=== PATIENT | male | born 1980 | race Two or more races ===

== ENCOUNTER 2025-02-26 15:39 | Inpatient (IN) | payer MEDICAID, OTHER ==
[~2025-02-26] VITALS: Ht 152.4 cm; Wt 95.4 kg
[2025-02-26 16:59] VITALS: PULSE 76; RESP 19; O2SAT 97
--- NOTE | 2025-02-26 16:59 | ED.PDOC ---
GI ASSESSMENT HPI Comments 45 y/o M, with no prior medical history presents to the ED for CC of abdominal pain. Patient states, he has been experiencing LLQ abdominal pain with associated symptoms of constipation, chills, and fever x3days. Patient reports, his LBM to have been as yesterday (02/25/25) however, to only have been very little. Patient denies nausea, vomiting, or diarrhea. No other symptoms or modifying factors are present at this time. Chief Complaint: Abdominal Pain Time Seen by MD: 16:50 Reviewed Notes: Nurses Notes, Medications, Allergies Allergies: Coded Allergies: NO KNOWN ALLERGIES (Unverified , 02/26/25) Information Source: Patient Mode of Arrival: Ambulatory Timing: Days Duration: Since onset Prehospital treatment: None Vomitus: None Stool: Impaction Severity: Moderate Recent: None Recent Hx of: None Pain Location: LLQ Modifying Factors: Nothing Associated sign and symptoms: Constipation, Abdominal Pain Past Medical History PAST MEDICAL HISTORY: Denies Surgical History: Denies all surgeries Family History Family History: Unknown Social History Smoker: Non-Smoker Alcohol: Denies ETOH Use Drugs: Denies Drug Use Lives In: Home Constitutional: reports: chills, fever; denies: diaphoresis, fatigue, malaise, sweats, weakness, others EENTM: denies: blurred vision, double vision, ear bleeding, ear discharge, ear drainage, ear pain, ear ringing, eye pain, eye redness, hearing loss, mouth pain, mouth swelling, nasal discharge, nose bleeding, nose congestion, nose pain , photophobia, tearing, throat pain, throat swelling, voice changes, others Respiratory: denies: cough, hemoptysis, orthopnea, SOB at rest, shortness of breath, SOB with excertion, stridor, wheezing, others Cardiovascular: denies: chest pain, dizzy spells, diaphoresis, Dyspnea on exertion, edema, irregular heart beat, left arm pain, lightheadedness, palpitations, PND, syncope, others Gastrointestinal: reports: abdominal pain; denies: abdomen distended, blood streaked bowels, constipated, diarrhea, dysphagia, difficulty swallowing, hematemesis, melena, nausea, poor appetite, poor fluid intake, rectal bleeding, rectal pain, vomiting, others Genitourinary: reports: dysuria; denies: burning, flank pain, frequency, hematuria, incontinence, penile discharge, penile sore, pain, testicle pain, testicle swelling, urgency, others Neurological: denies: dizziness, fainting, headache, left sided numbness, left sided weakness, numbness, paresthesia, pre-existing deficit, right sided numbness, right sided weakness, seizure, speech problems, tingling, tremors, weakness, others Musculoskeletal: denies: back pain, gout, joint pain, joint swelling, muscle pain, muscle stiffness, neck pain, others Integumetry: denies: bruises, change in color, change in hair/nails, dryness, laceration, lesions, lumps, rash, wounds, others Allergic/Immunocompromised: denies: Difficulty Healing, Frequent Infections, Hives, Itching, others Hematologic/Lymphatic: denies: anemia, blood clots, easy bleeding, easy bruising, swollen glands, others Endocrine: denies: excessive hunger, excessive sweating, excessive thirst, excessive urination, flushing, intolerance to cold, intolerance to heat, unexplained weight gain, unexplained weight loss, others Psychiatric: denies: anxiety, bipolar disorder, depression, hopeless, panic disorder, schizophrenia, sleepless, suicidal, others All Other Systems: Reviewed and Negative Physical Exam General Appearance: Moderate Distress HEENT: Normal ENT Inspection, Pharynx Normal, TMs Normal Neck: Full Range of Motion, Non-Tender, Normal, Normal Inspection Respiratory: Chest Non-Tender, Lungs Clear, No Accessory Muscle Use, No Res piratory Distress, Normal Breath Sounds Cardiovascular: No Edema, No JVD, No Murmur, No Gallop, Normal Peripheral Pulses, Regular Rate/Rhythm Breast Exam: Deferred Gastrointestinal: LLQ, No Organomegaly, No Pulsatile Mass, Normal Bowel Sounds, Soft, Tenderness Genitalia: Deferred Pelvic: Deferred Rectal: Deferred Extremities: No calf tenderness, Normal capillary refill, Normal inspection, Normal range of motion, Non-tender, No pedal edema Musculoskeletal : Apperance: Normal Neurologic: Alert, aerial sprayer II-XII nml as Tested, Motor Weakness, Normal Affect, Normal Mood, No Sensory Deficits Cerebellar Function: Normal Reflexes: Normal Skin: Dry, Normal Color, Warm Lymphatic: No Adenopathy Was a procedure done? Was a procedure done?: No GI differential Dx Differential Diagnosis: Constipation, Diverticular disease X-Ray, Labs, Meds, VS Vital Signs Date Time Temp Pulse Resp B/P (MAP) Pulse Ox O2 Delivery O2 Flow Rate FiO2 02/26/25 16:59 99.1 76 19 140/82 (101) 97 99.1 02/26/25 16:59 76 19 97 Room Air* 0 21 02/26/25 16:30 98.1 85 17 137/87 (104) 95 98.1 02/26/25 15:40 98.1 82 18 133/85 98 98.1 Lab Test 02/26/25 17:01 Range/Units White Blood Count 16.9 H 4.4-10.8 10^3/uL Red Blood Count 5.04 4.5-5.90 10^6/uL Hemoglobin 15.5 13.5-17.5 g/dL Hematocrit 45.5 41.0-53.0 % Mean Corpuscular Volume 90.2 80.0-100.0 fL Mean Corpuscular Hemoglobin 30.7 28.0-32.0 pg Mean Corpuscular Hemoglobin Concent 34.0 32.0-36.0 g/dL Red Cell Distribution Width 14.5 H 11.8-14.3 % Platelet Count 233 140-450 10^3/uL Mean Platelet Volume 8.1 6.9-10.8 fL Neutrophils (%) (Auto) 90.4 H 37.0-80.0 % Lymphocytes (%) (Auto) 6.5 L 10.0-50.0 % Monocytes (%) (Auto) 2.8 0.0-12.0 % Eosinophils (%) (Auto) 0.1 0.0-7.0 % Basophils (%) (Auto) 0.2 0.0-2.0 % Neutrophils # (Auto) 15.2 H 1.6-8.6 10 ^3/uL Lymphocytes # (Auto) 1.1 0.4-5.4 10 ^3/uL Monocytes # (Auto) 0.5 0-1.3 10 ^3/uL Eosinophils # (Auto) 0 0-0.8 10 ^3/uL Basophils # (Auto) 0 0-0.2 10 ^3/uL Nucleated Red Blood Cells 0.1 % Sodium Level 138 136-145 mmol/L Potassium Level 4.4 3.5-5.1 mmol/L Chloride Level 101 98-107 mmol/L Carbon Dioxide Level 26 20-31 mmol/L Anion Gap 11 5-15 Blood Urea Nitrogen 12 9-23 mg/dL Creatinine 1.15 0.700-1.30 mg/dL Glomerular Filtration Rate Calc 79 >90 mL/min BUN/Creatinine Ratio 10.4 10.0-20.0 Serum Glucose 112 H 74-106 mg/dL Calcium Level 9.7 8.7-10.4 mg/dL Current Medications Medications (Trade) Dose Ordered Sig/Aldo Route Start Time Stop Time Status Last Admin Sodium Chloride 500 ml @ 500 mls/hr Q1H ONCE IVB 02/26/25 17:00 02/26/25 17:59 02/26/25 17:04 Ketorolac Tromethamine (Toradol Injection) 30 mg ONCE ONCE IV 02/26/25 17:00 02/26/25 17:01 DC 02/26/25 17:03 The CBC shows an elevated white blood cell count of 16.9 The rest of the CBC is within normal limits The chemistry panel is within normal limits The patient was given ketorolac 30 mg IV push The patient was given normal saline at a 500 cc bolus The CAT scan of the abdomen and pelvis shows: IMPRESSION: 1. Acute uncomplicated sigmoid diverticulitis. 2. Hepatic steatosis. The findings are consistent with the acute diverticulitis so the patient is being given Flagyl 500 mg IV piggyback We will continue to follow the patient but the patient will be admitted at this time. Images Reviewed?: Images reviewed and evaluated by me Time of 1ST Reevaluation: 17:20 Reevaluation 1ST: Unchanged Patient Education/Counseling: Diagnosis, Treatment, Prognosis Family Education/Counseling: Diagnosis, Treatment, Prognosis SEPSIS Sepsis Screen Date sepsis recognized/suspect: Feb 26, 2025 Time Sepsis recognized/suspect: 1543 Recent Procedure: No On Antibiotic Therapy: No Respiratory Rate >20: No Heart Rate >90: No Temp<36 C (96.8 F) or >38.3 C: No SBP <90 or MAP <65 mmHG: No New Acute Mental Status Change: No Is the patient on CPAP, BIPAP,: No Physician Orders Urinalysis (02/26/25 16:50) Ct Ab Pel Wo Con-No Oral Or Iv (02/26/25 16:50) Heplock Iv (02/26/25 16:50) Sodium Chloride 0.9% (02/26/25 17:00) Vital Signs Date Time Temp Pulse Resp B/P (MAP) Pulse Ox O2 Delivery O2 Flow Rate FiO2 02/26/25 16:59 99.1 76 19 140/82 (101) 97 99.1 02/26/25 16:59 76 19 97 Room Air* 0 21 02/26/25 16:30 98.1 85 17 137/87 (104) 95 98.1 02/26/25 15:40 98.1 82 18 133/85 98 98.1 Laboratory Tests Test 02/26/25 17:01 White Blood Count 16.9 10^3/uL (4.4-10.8) H Medications Medications Dose Ordered Sig/Aldo Route Start Time Stop Time Status Last Admin Dose Admin Ketorolac Tromethamine 30 mg ONCE ONCE IV 02/26/25 17:00 02/26/25 17:01 DC 02/26/25 17:03 Sodium Chloride 500 ml @ 500 mls/hr Q1H ONCE IVB 02/26/25 17:00 02/26/25 17:59 02/26/25 17:04 Departure 1 Departure Time of Disposition: 17:43 Impression: Primary Impression: Intractable abdominal pain Additional Impression: Acute diverticulitis Disposition: ADMITTED INPATIENT Admit to: Med Surg Condition: Fair Critical Care Note Critical Care Time?: No Stability Stability form required: Yes Unstable for transfer: ED Physician Assesment (Clinical assesment) Heart Score Heart Score: Heart Score Response (Comments) Value History N/A 0 EKG N/A 0 Age N/A 0 Risk Factors N/A 0 Troponin N/A 0 Total 0 I personally scribed for GWEN CHAVIS MD ([email or web address]) on 02/26/25 at 16:59. Electronically submitted by Taylor Abarca ([email or web address]). GWEN CHAVIS MD Feb 26, 2025 16:59
[2025-02-26] MEDS: ONDANSETRON HCL 4 MG/2 ML VIAL IV ONE (17:01)
[2025-02-26] MEDS: KETOROLAC TROMETH 30 MG/ML 1ML VIAL IV ONE (17:03)
[2025-02-26] MEDS: SODIUM CHLORIDE 0.9% 500 ML IVB ONE (17:04)
[2025-02-26 17:28] LABS: Hematocrit 45.5 % (41.0-53.0); Hemoglobin 15.5 g/dL (13.5-17.5); Mean Corpuscular Hemoglobin 30.7 pg (28.0-32.0); Mean Corpuscular Volume 90.2 fL (80.0-100.0); Nucleated Red Blood Cells % 0.1 %
[2025-02-26 17:30] LABS: Chloride 101 mmol/L (98-107); Potassium 4.4 mmol/L (3.5-5.1); Sodium 138 mmol/L (136-145)
[2025-02-26 17:31] LABS: Anion Gap 11 (5-15); Carbon Dioxide 26 mmol/L (20-31)
[2025-02-26 17:32] LABS: Calcium 9.7 mg/dL (8.7-10.4)
[2025-02-26 17:36] LABS: BUN/Creatinine Ratio 10.4 (10.0-20.0); Blood Urea Nitrogen 12 mg/dL (9-23)
[2025-02-26 17:39] LABS: Glucose 112 mg/dL (74-106)
--- NOTE | 2025-02-26 17:39 | DVH ---
EXAM: CT CT AB PEL WO CON-NO ORAL OR IV INDICATION: llq pain TECHNIQUE: Volumetric multidetector CT images of the abdomen and pelvis were obtained without contras t. All CT scans at this facility use dose modulation, iterative reconstruction, and/or weight based d osing when appropriate to reduce radiation dose to as low as reasonably achievable. COMPARISON: None FINDINGS: [LOWER CHEST]: The partially visualized lung bases are clear without a pleural effusion. The cardiac size is normal without pericardial effusion. [LIVER]: Hepatic steatosis [GALLBLADDER AND BILIARY TREE]: No cholelithiasis. [SPLEEN]: Unremarkable. [PANCREAS]: Unremarkable. [ADRENAL GLANDS]: Unremarkable [KIDNEYS]: No hydronephrosis. No nephroureterolithiasis. [BLADDER]: Unremarkable for the degree distention. [REPRODUCTIVE ORGANS]: Unremarkable. [BOWEL/MESENTERY]: Stomach is normal. Inflammatory stranding of the proximal sigmoid colon primarily along the anti mesenteric margin compatible with diverticulitis. No definitive drainable fluid collec tion at this time [ASCITES]: Trace ascites in the left pericolic gutter [LYMPHADENOPATHY]: No pathologically enlarged lymph nodes by CT size criteria [VASCULATURE]: No aneurysmal dilatation. [ABDOMINAL WALL]: Unremarkable. [MUSCULOSKELETAL]: No acute fracture or aggressive focal osseous lesion. IMPRESSION: 1. Acute uncomplicated sigmoid diverticulitis. 2. Hepatic steatosis.
[2025-02-26 18:16] LABS: Urine Protein, UAD Negative (Negative)
[2025-02-26] MEDS ORDERED: ONDANSETRON HCL 4 MG/2 ML VIAL IV PRN (19:45)
[2025-02-26] MEDS ORDERED: HYDROcodone-ACET 5/325MG TAB PO PRN (19:45)
[2025-02-26] MEDS: PANTOPRAZOLE 40 MG/10 ML VIAL INJ IV ONE (21:39)
[2025-02-26 22:09] VITALS: BP 131/83; PULSE 84; RESP 19; TEMP 97.1; O2SAT 96
--- NOTE | 2025-02-26 22:12 | DVHHP2 ---
History of Present Illness Reason for Visit: Abdominal pain History of Present Illness 45-year-old male presents for evaluation of abdominal pain. Patient reports a two day history of left lower quadrant intermittent abdominal pain/cramping with associated nausea and constipation. He also reports intermittent chills. Past Medical History Denies Past Surgical History Denies Family History Noncontributory Smoke: No ALCOHOL: none Drugs: None Lives: with Family Review of Systems Review of Systems Review of systems are currently negative otherwise addressed in HPI. Allergies: Coded Allergies: NO KNOWN ALLERGIES (Unverified , 02/26/25) Medications Current Medications Medications Dose Ordered Sig/Aldo Route Start Time Stop Time Status Last Admin Dose Admin Pantoprazole Sodium 40 mg DAILY IV 02/27/25 10:00 Ceftriaxone Sodium 50 ml @ 100 mls/hr DAILY@09 IV 02/27/25 09:00 Acetaminophen/ Hydrocodone Bitart 1 tab Q4HP PRN PO 02/26/25 19:45 Ondansetron HCl 4 mg Q4HP PRN IV 02/26/25 19:45 Acetaminophen 650 mg Q6HP PRN PO 02/26/25 19:45 Exam Vital Signs Vital Signs Date Time Temp Pulse Resp B/P (MAP) Pulse Ox O2 Delivery O2 Flow Rate FiO2 02/26/25 21:45 98.6 84 17 148/96 (113) 95 98.6 02/26/25 16:59 Room Air* 0 21 Exam Gen: 45-year-old male in mild distress. Skin: Warm, dry, normal color and texture, no rash. HEENT: Normocephalic atraumatic, mucous membranes moist and pink. Neck: Cervical and supraclavicular nodes normal without enlargement, trachea is midline, thyroid gland is normal without masses. Pulmonary: Clear to auscultation and percussion bilaterally. Cardiac: Regular rate and rhythm. No murmur Abdomen: Soft, left lower quadrant tenderness, nondistended, bowel sounds present all 4 quadrants, no guarding, no rigidity, no organomegaly. Extremities: No cyanosis, clubbing, no edema Neuro: Cranial nerves II through XII grossly intact, normal affect and speech, no focal motor deficits. Labs/Xrays ORDERING PHYSICIAN: GWEN CHAVIS MD PROCEDURE(s): ABPL - CT AB PEL WO CON-NO ORAL OR IV REASON: llq pain ORDER NUMBER(s): [id number], ACCESSION NUMBER(s): [id number] EXAM: CT CT AB PEL WO CON-NO ORAL OR IV INDICATION: llq pain TECHNIQUE: Volumetric multidetector CT images of the abdomen and pelvis were obtained without contrast. All CT scans at this facility use dose modulation, iterative reconstruction, and/or weight based dosing when appropriate to reduce radiation dose to as low as reasonably achievable. COMPARISON: None FINDINGS: [LOWER CHEST]: The partially visualized lung bases are clear without a pleural effusion. The cardiac size is normal without pericardial effusion. [LIVER]: Hepatic steatosis [GALLBLADDER AND BILIARY TREE]: No cholelithiasis. [SPLEEN]: Unremarkable. [PANCREAS]: Unremarkable. [ADRENAL GLANDS]: Unremarkable [KIDNEYS]: No hydronephrosis. No nephroureterolithiasis. [BLADDER]: Unremarkable for the degree distention. [REPRODUCTIVE ORGANS]: Unremarkable. [BOWEL/MESENTERY]: Stomach is normal. Inflammatory stranding of the proximal sigmoid colon primarily along the anti mesenteric margin compatible with diverticulitis. No definitive drainable fluid collection at this time [ASCITES]: Trace ascites in the left pericolic gutter [LYMPHADENOPATHY]: No pathologically enlarged lymph nodes by CT size criteria [VASCULATURE]: No aneurysmal dilatation. [ABDOMINAL WALL]: Unremarkable. [MUSCULOSKELETAL]: No acute fracture or aggressive focal osseous lesion. IMPRESSION: 1. Acute uncomplicated sigmoid diverticulitis. 2. Hepatic steatosis. Labs Test 02/26/25 17:01 02/26/25 17:00 Range/Units White Blood Count 16.9 H 4.4-10.8 10^3/uL Red Blood Count 5.04 4.5-5.90 10^6/uL Hemoglobin 15.5 13.5-17.5 g/dL Hematocrit 45.5 41.0-53.0 % Mean Corpuscular Volume 90.2 80.0-100.0 fL Mean Corpuscular Hemoglobin 30.7 28.0-32.0 pg Mean Corpuscular Hemoglobin Concent 34.0 32.0-36.0 g/dL Red Cell Distribution Width 14.5 H 11.8-14.3 % Platelet Count 233 140-450 10^3/uL Mean Platelet Volume 8.1 6.9-10.8 fL Neutrophils (%) (Auto) 90.4 H 37.0-80.0 % Lymphocytes (%) (Auto) 6.5 L 10.0-50.0 % Monocytes (%) (Auto) 2.8 0.0-12.0 % Eosinophils (%) (Auto) 0.1 0.0-7.0 % Basophils (%) (Auto) 0.2 0.0-2.0 % Neutrophils # (Auto) 15.2 H 1.6-8.6 10 ^3/uL Lymphocytes # (Auto) 1.1 0.4-5.4 10 ^3/uL Monocytes # (Auto) 0.5 0-1.3 10 ^3/uL Eosinophils # (Auto) 0 0-0.8 10 ^3/uL Basophils # (Auto) 0 0-0.2 10 ^3/uL Nucleated Red Blood Cells 0.1 % Sodium Level 138 136-145 mmol/L Potassium Level 4.4 3.5-5.1 mmol/L Chloride Level 101 98-107 mmol/L Carbon Dioxide Level 26 20-31 mmol/L Anion Gap 11 5-15 Blood Urea Nitrogen 12 9-23 mg/dL Creatinine 1.15 0.700-1.30 mg/dL Glomerular Filtration Rate Calc 79 >90 mL/min BUN/Creatinine Ratio 10.4 10.0-20.0 Serum Glucose 112 H 74-106 mg/dL Calcium Level 9.7 8.7-10.4 mg/dL Urine Color Colorless Yellow Urine Clarity Clear Clear Urine pH 5.5 5.0-9.0 Urine Specific [place] 1.005 1.001-1.035 Urine Protein Negative Negative Urine Ketones Negative Negative Urine Blood Trace H Negative /uL Urine Nitrite Negative Negative Urine Bilirubin Negative Negative Urine Urobilinogen Normal Negative mg/dL Urine Leukocyte Esterase Negative Negative /uL Urine RBC <1 0 - 3 /hpf Urine Microscopic WBC < 1 0-3 /HPF Urine Squamous Epithelial Cells None seen <5 /hpf Urine Bacteria None seen None Seen /hpf Urine Glucose Normal Normal mg/dL SEPSIS Sepsis Screen Date sepsis recognized/suspect: Feb 26, 2025 Time Sepsis recognized/suspect: 1658 Recent Procedure: No On Antibiotic Therapy: No Respiratory Rate >20: No Heart Rate >90: No Temp<36 C (96.8 F) or >38.3 C: No SBP <90 or MAP <65 mmHG: No New Acute Mental Status Change: No Is the patient on CPAP, BIPAP,: No Physician Orders Ct Ab Pel Wo Con-No Oral Or Iv (02/26/25 16:50) Heplock Iv (02/26/25 16:50) Pantoprazole (Protonix) (02/27/25 10:00) * [facility] Director Maternal Child (02/26/25 19:42) Basic Metabolic Panel (02/27/25 04:00) Ceftriaxone 1gm/50ml (Rocephin) (02/27/25 09:00) Admit (02/26/25 19:42) Hydrocodone-Acet 5/325mg Tab ([place] 5/32 (02/26/25 19:45) Ondansetron Hcl (Zofran) (02/26/25 19:45) Complete Blood Count (02/27/25 04:00) Condition: Stable (02/26/25 19:42) Acetaminophen Tablet (Tylenol Tablet) (02/26/25 19:45) Clear Liq Diet (02/27/25 Breakfast) Bedrest With Bathroom Privileg (02/26/25 19:42) Vital Signs Date Time Temp Pulse Resp B/P (MAP) Pulse Ox O2 Delivery O2 Flow Rate FiO2 02/26/25 21:45 98.6 84 17 148/96 (113) 95 98.6 02/26/25 21:45 98.6 84 17 148/96 (113) 95 98.6 02/26/25 16:59 99.1 76 19 140/82 (101) 97 99.1 02/26/25 16:59 76 19 97 Room Air* 0 21 02/26/25 16:30 98.1 85 17 137/87 (104) 95 98.1 02/26/25 15:40 98.1 82 18 133/85 98 98.1 Laboratory Tests Test 02/26/25 17:01 White Blood Count 16.9 10^3/uL (4.4-10.8) H Medications Medications Dose Ordered Sig/Aldo Route Start Time Stop Time Status Last Admin Dose Admin Ketorolac Tromethamine 30 mg ONCE ONCE IV 02/26/25 17:00 02/26/25 17:01 DC 02/26/25 17:03 30 MG Metronidazole 100 ml @ 100 mls/hr ONCE ONCE IV 02/26/25 17:45 02/26/25 18:44 DC 02/26/25 17:54 100 MLS/HR Pantoprazole Sodium 40 mg ONCE ONCE IV 02/26/25 19:45 02/26/25 19:53 DC 02/26/25 21:39 40 MG Sodium Chloride 500 ml @ 500 mls/hr Q1H ONCE IVB 02/26/25 17:00 02/26/25 17:59 DC 02/26/25 17:04 500 MLS/HR Assessment/Plan Assessment/Plan Assessment Acute diverticulitis Leukocytosis Plan Admit the patient to [facility] to the hospitalist GI consult Clear liquid diet Pain management Rocephin/Flagyl Continue treatment per orders Plan discussed with: Patient My Orders Orders - LUIS EDUARDO GARCIA Procedure Category Date Status Time Pantoprazole PHA 02/27/25 In Process (Protonix) 10:00 * [facility] Director Maternal Child CONS 02/26/25 Transmitted 19:42 Basic Metabolic Panel LAB 02/27/25 Verified 04:00 Ceftriaxone 1gm/50ml PHA 02/27/25 In Process (Rocephin) 09:00 Admit ADMIT 02/26/25 Transmitted 19:42 Hydrocodone-Acet PHA 02/26/25 In Process 5/325mg Tab ([place] 19:45 Ondansetron Hcl PHA 02/26/25 In Process (Zofran) 19:45 Complete Blood Count LAB 02/27/25 Verified 04:00 Condition: Stable [place] 02/26/25 In Process 19:42 Acetaminophen Tablet PHA 02/26/25 In Process (Tylenol Tablet) 19:45 Clear Liq Diet DIET 02/27/25 Transmitted Breakfast Bedrest With Bathroom [place] 02/26/25 In Process Privileg 19:42 Date of Service: Feb 26, 2025 Billing Provider: LUIS EDUARDO GARCIA Common Visit Codes: [id number] INP/OBS CARE (HIGH) LUIS EDUARDO GARCIA Feb 26, 2025 22:12
[2025-02-26 22:31] VITALS: PULSE 64; RESP 19; O2SAT 96
[2025-02-26] MEDS: ACETAMINOPHEN 325 MG TAB PO PRN (22:52)
[2025-02-26 23:27] VITALS: BP 131/83; PULSE 64; RESP 19; TEMP 97.1; O2SAT 96
[2025-02-27] VITALS (7 sets, daily range): BP systolic 133–147; BP diastolic 80–86; PULSE 64–83; RESP 15–19; TEMP 97.9–98.2; O2SAT 97–98
[2025-02-27 06:48] LABS: Hematocrit 42.2 % (41.0-53.0); Hemoglobin 14.6 g/dL (13.5-17.5); Mean Corpuscular Hemoglobin 30.9 pg (28.0-32.0); Mean Corpuscular Volume 88.9 fL (80.0-100.0); Nucleated Red Blood Cells % 0.0 %
[2025-02-27 06:54] LABS: Chloride 103 mmol/L (98-107); Potassium 3.9 mmol/L (3.5-5.1); Sodium 140 mmol/L (136-145)
[2025-02-27 06:55] LABS: Anion Gap 10 (5-15); Calcium 9.7 mg/dL (8.7-10.4); Carbon Dioxide 27 mmol/L (20-31)
[2025-02-27 07:00] LABS: BUN/Creatinine Ratio 13.5 (10.0-20.0); Blood Urea Nitrogen 14 mg/dL (9-23)
[2025-02-27 07:02] LABS: Glucose 133 mg/dL (74-106)
[2025-02-27] MEDS ORDERED: PANTOPRAZOLE 40 MG/10 ML VIAL INJ IV SCH (10:00)
[2025-02-27] MEDS: PANTOPRAZOLE 40 MG TAB PO ONE (10:04)
--- NOTE | 2025-02-27 14:41 | DVHPNRES ---
Progress Note Date Seen: Feb 27, 2025 Resident Creating Document: CYNDEE BOWMAN RESIDENT Medical Necessity Reason Pt with a Central, PICC or Fol: No Subjective Review of Systems Patient is a Portuguese-speaking 45-year-old male with no past medical history presented to [facility] ED with complaint of abdominal pain. He reports a two to three day history of intermittent cramping pain localized to the left lower quadrant. He notes that the pain worsens with walking or standing. He describes associated symptoms including constipation, chills, and subjective fever. He states that he had a minimal bowel movement yesterday and a small one this morning. He denies vomiting, or diarrhea. CT abdomen shows acute uncomplicated sigmoid diverticulitis and hepatic steatosis. Past medial history: None Past surgical history: None Social & Personal history: None Allergies: None Patient seen and examined at bedside. Patient is alert and oriented to time, place person and responding to all questions. Constitutional: Yes: Fever, Chills Eyes: No Pain, No Vision change, No Conjunctivae inflammation, No Eyelid inflammation, No Other, No Redness ENT: No Ear pain, No Ear discharge, No Nose pain, No Nose discharge, No Nose congestion, No Mouth pain, No Mouth swelling, No Throat pain, No Throat swelling, No Other Cardiovascular: No Chest Pain, No Palpitations, No Orthopnea, No Paroxysmal No Dyspnea, No Edema, No Lt Headedness, No Other Respiratory: No Cough, No Dry, No Shortness of breath, No SOB with exertion, No Wheezing, No Hemoptysis, No Pleuritic Pain, No Sputum, No Other Gastrointestinal: Nausea, No Vomiting, Abdominal Pain, No Diarrhea, C onstipation, No Melena, No Hematochezia, No Other Genitourinary: Dysuria, No Frequency, No Incontinence, No Hematuria, No Retention, No Other Musculoskeletal: No other, No neck pain, No shoulder pain, No arm pain, No back pain, No hand pain, No leg pain, No foot pain Skin: No Rash, No Lesions, No Jaundice, No Bruising, No Other Objective vital signs Vital Sign Date Time Temp Pulse Resp B/P (MAP) Pulse Ox O2 Delivery O2 Flow Rate FiO2 02/27/25 13:00 98.1 77 16 133/86 (102) 97 98.1 02/27/25 08:00 Room Air* 0 21 Total Intake and Output 02/26/25 02/26/25 02/27/25 15:00 23:00 07:00 Intake Total 600 ml 300 ml Balance 600 ml 300 ml medications Current Medications Medications Dose Ordered Sig/Aldo Route Start Time Stop Time Status Last Admin Dose Admin Ceftriaxone Sodium 50 ml @ 100 mls/hr DAILY@09 IV 02/27/25 09:00 02/27/25 10:04 100 MLS/HR Acetaminophen/ Hydrocodone Bitart 1 tab Q4HP PRN PO 02/26/25 19:45 Ondansetron HCl 4 mg Q4HP PRN IV 02/26/25 19:45 Acetaminophen 650 mg Q6HP PRN PO 02/26/25 19:45 02/27/25 06:20 650 MG Metronidazole 100 ml @ 100 mls/hr Q8HR IV 02/27/25 14:00 Pantoprazole Sodium 40 mg DAILY@0600 PO 02/28/25 06:00 Examination General Appearance: Cooperative. Well developed. Well nourished. NAD Head Exam: Normal inspection Neck Exam: Normal inspection. Non-tender. Normal alignment Pulmonary/Respiratory: Chest non-tender. Clear bilateral breath sounds, no crackles, no wheezing. Cardiovascular/Chest: Regular rate and rhythm. No murmurs. No JVD. Peripheral Pulses: 2+ Radial (R). 2+ Radial (L). 2+ Pedal (R). 2+ Pedal (L) Abdominal Exam: LLQ, No Organomegaly, No Pulsatile Mass, Normal Bowel Sounds, Soft, Tenderness Ankle Exam: Negative ankle edema Lower extremities: Negative lower extremity edema Neuro/Mental Status: A&O x4. Coherent. Thoughts/Psych: Normal thought pattern. Appropriate mood and affect. Good judgement and insight Skin Exam: Normal inspection. Normal color. Warm. Dry laboratory and microbiology Laboratory Tests 02/27/25 06:10 Test 02/27/25 06:10 Range/Units Serum Glucose 133 H 74-106 mg/dL Labs and/or images reviewed: Labs reviewed by me, Image(s) reviewed by me Problem List/Assessment/Plan Problem List/Assessment/Plan # Acute uncomplicated sigmoid diverticulitis # Acute intractable abdominal pain due to above CT abdomen: Acute uncomplicated sigmoid diverticulitis. Hepatic steatosis. GI consult Ceftriaxone Metronidazole [place] Zofran Tylenol Diet: Full liquid PUD prophylaxis: protonix 40mg Goals of care: Full code, discussed for >16 minutes on 02/27/25 Plan discussed with patient Plan discussed with Dr. Flores Plan discussed with: Patient, Other (RN) My Orders My Orders Orders - CYNDEE BOWMAN Procedure Category Date Status Time Full Liq Diet DIET 02/27/25 Transmitted Lunch Date of Service: Feb 27, 2025 Billing Provider: YOBANI FLORES MD Common Visit Codes: [id number] INP/OBS CARE(HIGH) CYNDEE BOWMAN Feb 27, 2025 14:41 YOBANI FLORES MD Feb 27, 2025 23:07
[2025-02-27] MEDS ORDERED: CIPR-173 PO (14:52)
[2025-02-27] MEDS ORDERED: POLY33505 PO (14:52)
[2025-02-27] MEDS ORDERED: METR-344 PO (14:52)
[2025-02-28 01:00] VITALS: BP 127/78; PULSE 74; RESP 18; TEMP 98.5; O2SAT 96
[2025-02-28 05:00] VITALS: BP 114/73; PULSE 62; RESP 18; TEMP 98.2; O2SAT 95
[2025-02-28] MEDS: PANTOPRAZOLE 40 MG TAB PO SCH (05:35)
[2025-02-28 05:47] LABS: Hematocrit 41.0 % (41.0-53.0); Hemoglobin 14.3 g/dL (13.5-17.5); Mean Corpuscular Hemoglobin 30.9 pg (28.0-32.0); Mean Corpuscular Volume 88.5 fL (80.0-100.0); Nucleated Red Blood Cells % 0.1 %
[2025-02-28 05:59] LABS: Alanine Aminotransferase 29 U/L (7-40); Albumin 4.0 g/dL (3.2-4.8); Alkaline Phosphatase 66 U/L (46-116); Anion Gap 10 (5-15); BUN/Creatinine Ratio 10.9 (10.0-20.0); Blood Urea Nitrogen 13 mg/dL (9-23); Calcium 9.0 mg/dL (8.7-10.4); Carbon Dioxide 26 mmol/L (20-31); Chloride 105 mmol/L (98-107); Glucose 95 mg/dL (74-106); Potassium 3.9 mmol/L (3.5-5.1); Sodium 141 mmol/L (136-145); Total Protein 6.7 g/dL (5.7-8.2)
[2025-02-28 06:09] LABS: Bilirubin, Total 0.5 mg/dL (0.2-1.0)
[2025-02-28 09:00] VITALS: BP 121/74; PULSE 62; RESP 17; TEMP 98.3; O2SAT 95
[2025-02-28 10:54] VITALS: BP 131/95; PULSE 67; RESP 20; TEMP 97.5; O2SAT 100
--- NOTE | 2025-02-28 11:39 | DVHDSRES ---
Discharge Summary Date of Admission Resident Creating Document: CYNDEE BOWMAN RESIDENT Feb 26, 2025 at 19:42 Date of Discharge: Feb 28, 2025 Admitting Diagnosis abdominal pain Labs/Diagnostic Data: Laboratory Results Test 02/28/25 05:10 02/26/25 17:00 White Blood Count 10.2 10^3/uL (4.4-10.8) Red Blood Count 4.63 10^6/uL (4.5-5.90) Hemoglobin 14.3 g/dL (13.5-17.5) Hematocrit 41.0 % (41.0-53.0) Mean Corpuscular Volume 88.5 fL (80.0-100.0) Mean Corpuscular Hemoglobin 30.9 pg (28.0-32.0) Mean Corpuscular Hemoglobin Concent 34.8 g/dL (32.0-36.0) Red Cell Distribution Width 14.1 % (11.8-14.3) Platelet Count 258 10^3/uL (140-450) Mean Platelet Volume 8.2 fL (6.9-10.8) Neutrophils (%) (Auto) 65.6 % (37.0-80.0) Lymphocytes (%) (Auto) 26.6 % (10.0-50.0) Monocytes (%) (Auto) 6.8 % (0.0-12.0) Eosinophils (%) (Auto) 0.6 % (0.0-7.0) Basophils (%) (Auto) 0.4 % (0.0-2.0) Neutrophils # (Auto) 6.7 10 ^3/uL (1.6-8.6) Lymphocytes # (Auto) 2.7 10 ^3/uL (0.4-5.4) Monocytes # (Auto) 0.7 10 ^3/uL (0-1.3) Eosinophils # (Auto) 0.1 10 ^3/uL (0-0.8) Basophils # (Auto) 0 10 ^3/uL (0-0.2) Nucleated Red Blood Cells 0.1 % Sodium Level 141 mmol/L (136-145) Potassium Level 3.9 mmol/L (3.5-5.1) Chloride Level 105 mmol/L (98-107) Carbon Dioxide Level 26 mmol/L (20-31) Anion Gap 10 (5-15) Blood Urea Nitrogen 13 mg/dL (9-23) Creatinine 1.19 mg/dL (0.700-1.30) Glomerular Filtration Rate Calc 76 mL/min (>90) BUN/Creatinine Ratio 10.9 (10.0-20.0) Serum Glucose 95 mg/dL (74-106) Calcium Level 9.0 mg/dL (8.7-10.4) Total Bilirubin 0.5 mg/dL (0.2-1.0) Aspartate Amino Transferase (AST) 20 U/L (13-40) Alanine Aminotransferase (ALT) 29 U/L (7-40) Alkaline Phosphatase 66 U/L (46-116) Total Protein 6.7 g/dL (5.7-8.2) Albumin 4.0 g/dL (3.2-4.8) Urine Color Colorless (Yellow) Urine Clarity Clear (Clear) Urine pH 5.5 (5.0-9.0) Urine Specific [place] 1.005 (1.001-1.035) Urine Protein Negative (Negative) Urine Ketones Negative (Negative) Urine Blood Trace /uL (Negative) Urine Nitrite Negative (Negative) Urine Bilirubin Negative (Negative) Urine Urobilinogen Normal mg/dL (Negative) Urine Leukocyte Esterase Negative /uL (Negative) Urine RBC <1 /hpf (0 - 3) Urine Microscopic WBC < 1 /HPF (0-3) Urine Squamous Epithelial Cells None seen /hpf (<5) Urine Bacteria None seen /hpf (None Seen) Urine Glucose Normal mg/dL (Normal) Other Laboratory Tests 02/28/25 05:10 Brief Hx & Hospital Course: The patient is a 45-year-old Barbadian-speaking male with no known past medical or surgical history who presented to [facility] ED with complaints of abdominal pain. He reported a 23 day history of intermittent cramping pain localized to the left lower quadrant, worsened by walking or standing. Associated symptoms included constipation, chills, and subjective fever. He denied vomiting or diarrhea. Physical examination revealed LLQ tenderness without peritoneal signs. CT abdomen demonstrated acute uncomplicated sigmoid diverticulitis and hepatic steatosis. The patient was admitted for medical management of diverticulitis. He was started on intravenous antibiotics (ceftriaxone and metronidazole), pain control with [place] and Tylenol, and antiemetics. A GI consultation was obtained. He was transitioned to oral antibiotics (ciprofloxacin and metronidazole) and placed on a full liquid diet. Miralax was prescribed for constipation. The patient remained hemodynamically stable and alert, with improvement in symptoms during hospitalization. Examination General Appearance: Cooperative. Well developed. Well nourished. NAD Head Exam: Normal inspection Neck Exam: Normal inspection. Non-tender. Normal alignment Pulmonary/Respiratory: Chest non-tender. Clear bilateral breath sounds, no crackles, no wheezing. Cardiovascular/Chest: Regular rate and rhythm. No murmurs. No JVD. Peripheral Pulses: 2+ Radial (R). 2+ Radial (L). 2+ Pedal (R). 2+ Pedal (L) Abdominal Exam: LLQ, No Organomegaly, No Pulsatile Mass, Normal Bowel Sounds, Soft, Tenderness Ankle Exam: Negative ankle edema Lower extremities: Negative lower extremity edema Neuro/Mental Status: A&O x4. Coherent. Thoughts/Psych: Normal thought pattern. Appropriate mood and affect. Good judgement and insight Skin Exam: Normal inspection. Normal color. Warm. Dry Operations or Procedures PATIENT: ROCIO WHITE ACCT: [id number] UNIT: [id number] : 1980 LOC: ER ROOM / BED: / AGE / SEX: 45 / M ADM STATUS: REG ER SERVICE 1650 ORDERING PHYSICIAN: GWEN CHAVIS MD PROCEDURE(s): ABPL - CT AB PEL WO CON-NO ORAL OR IV REASON: llq pain ORDER NUMBER(s): [id number], ACCESSION NUMBER(s): [id number] EXAM: CT CT AB PEL WO CON-NO ORAL OR IV INDICATION: llq pain TECHNIQUE: Volumetric multidetector CT images of the abdomen and pelvis were obtained without contrast. All CT scans at this facility use dose modulation, iterative reconstruction, and/or weight based dosing when appropriate to reduce radiation dose to as low as reasonably achievable. COMPARISON: None FINDINGS: [LOWER CHEST]: The partially visualized lung bases are clear without a pleural effusion. The cardiac size is normal without pericardial effusion. [LIVER]: Hepatic steatosis [GALLBLADDER AND BILIARY TREE]: No cholelithiasis. [SPLEEN]: Unremarkable. [PANCREAS]: Unremarkable. [ADRENAL GLANDS]: Unremarkable [KIDNEYS]: No hydronephrosis. No nephroureterolithiasis. [BLADDER]: Unremarkable for the degree distention. [REPRODUCTIVE ORGANS]: Unremarkable. [BOWEL/MESENTERY]: Stomach is normal. Inflammatory stranding of the proximal sigmoid colon primarily along the anti mesenteric margin compatible with diverticulitis. No definitive drainable fluid collection at this time [ASCITES]: Trace ascites in the left pericolic gutter [LYMPHADENOPATHY]: No pathologically enlarged lymph nodes by CT size criteria [VASCULATURE]: No aneurysmal dilatation. [ABDOMINAL WALL]: Unremarkable. [MUSCULOSKELETAL]: No acute fracture or aggressive focal osseous lesion. IMPRESSION: 1. Acute uncomplicated sigmoid diverticulitis. 2. Hepatic steatosis. Condition at Discharge: Stable Final Diagnosis/Problems List # Acute uncomplicated sigmoid diverticulitis # Acute intractable abdominal pain due to above Discharge Disposition: Home Discharge Instruct/Medications Diet: See Comment Diet comment: Full liquid diet for 5-7 days Activity: No Restrictions, As Tolerated Follow Up/Referral: Follow up with PCP within 1 week Medications: New Prescriptions Ciprofloxacin Hcl (Cipro) 500 Mg PO BID 10 Days #20 TAB Ref 0 Metronidazole (Flagyl) 500 Mg PO TID 10 Days #30 TAB Ref 0 Miralax 17 Gm PO DAILY PRN 10 Days #10 POW Ref 0 continue home medications Scheduled Ciprofloxacin Hcl (Cipro), 500 MG PO BID Metronidazole (Flagyl), 500 MG PO TID Scheduled PRN Polyethylene Glycol (Miralax), 17 GM PO DAILYP PRN Discharge Statement: "Patient was advised to return to the ER or call 911 if any headaches, dizziness, shortness of breath, chest pain, abdominal pain, bleeding, fevers, or worsening of medical condition. Patient was counseled about treatment plan, medications, possible side effects, patientverbalized understanding. All questions were answered to the best of my ability. This discharge took greater then 30 minutes in planning, reviewing documentation, counseling the patient, and discussing with other team members." ASSESSMENT ASSESSMENT Assessment # Acute uncomplicated sigmoid diverticulitis # Acute intractable abdominal pain due to above Date of Service: Feb 28, 2025 Billing Provider: YOBANI GODFREY MD Common Visit Codes: 20178-NFJ/OBS DISCH DAY >30min CYNDEE BOWMAN RESIDENT Feb 28, 2025 11:38 YOBANI GODFREY MD Mar 01, 2025 07:05
== END 2025-02-28 13:17 | disposition home or self-care (01) | DRG 244 ==
LOC: ER 15:39 → OVERFLOW 19:42 → WEST WING 19:49
PROVIDERS: ADMIT Internal Medicine; ATTEND Internal Medicine
DX: K57.32 Diverticulitis of large intestine without perforation or abscess without bleeding (principal); D72.829 Elevated white blood cell count, unspecified; K59.00 Constipation, unspecified; K76.0 Fatty (change of) liver, not elsewhere classified; Z79.899 Other long term (current) drug therapy
CPT/HCPCS: 36415; 74176; 80048; 80053; 81001; 85025; 96365; 96375; G0378; J1885; J2470; J3490

== ENCOUNTER 2025-03-04 14:55 | Inpatient (IN) | payer MEDICAID ==
[~2025-03-04] VITALS: Ht 175.3 cm; Wt 60.0 kg
[~2025-03-04 14:55] MED LIST: CIPR-173 PO; METR-344 PO; POLY33505 PO
[2025-03-04 15:56] LABS: Hematocrit 46.4 % (41.0-53.0); Hemoglobin 16.1 g/dL (13.5-17.5); Mean Corpuscular Hemoglobin 30.8 pg (28.0-32.0); Mean Corpuscular Volume 88.9 fL (80.0-100.0); Nucleated Red Blood Cells % 0.2 %
--- NOTE | 2025-03-04 15:59 | ED.PDOC ---
History of Present Illness HPI Comments 45 y/o obese M presents with c/c of fever, cough, and congestion for 2x days. Patient reports on persisting symptoms following initial onset, with a last at- home temperature of 101.3F prior to ED arrival. Denies any shortness of breath, chest pain, nausea, vomiting, chills, or further associated symptoms. Only reported Hx of diverticulitis. Chief Complaint: Fever Time Seen by MD: 15:20 Reviewed Notes: Nurses Notes, Medications, Allergies Allergies: Coded Allergies: NO KNOWN ALLERGIES (Unverified , 02/26/25) Home Meds Active Scripts Polyethylene Glycol (Miralax) 17 Gm/Scoop Pow, 17 GM PO DAILYP PRN for 10 Days, #10 POW 0 Refills Prov:CHRISTINE SIN 02/27/25 Metronidazole (Flagyl) 500 Mg Tab, 500 MG PO TID for 10 Days, #30 TAB 0 Refills Prov:CHRISTINE SIN 02/27/25 Ciprofloxacin Hcl (Cipro) 500 Mg Tab, 500 MG PO BID for 10 Days, #20 TAB 0 Refills Prov:CHRISTINE SIN 02/27/25 Information Source: Patient Mode of Arrival: Ambulatory Severity: Moderate Timing: Days Duration: Since onset Prehospital treatment: None Past Medical History Past Medical History (Other): diverticulitis Surgical History: Denies all surgeries Family History Family History: Unknown Social History Smoker: Non-Smoker Alcohol: Denies ETOH Use Drugs: Denies Drug Use Lives In: Home All Other Systems: Reviewed and Negative (Comprehensive review of systems are negative unless stated in HPI) Physical Exam General Appearance: Moderate Distress HEENT: Normal ENT Inspection, Pharynx Normal, TMs Normal Neck: Full Range of Motion, Non-Tender, Normal, Normal Inspection Respiratory: Chest Non-Tender, Lungs Clear, No Accessory Muscle Use, No Respiratory Distress, Normal Breath Sounds Cardiovascular: No Edema, No JVD, No Murmur, No Gallop, Normal Peripheral Pulses, Regular Rate/Rhythm Breast Exam: Deferred Gastrointestinal: No Organomegaly, Non Tender, No Pulsatile Mass, Normal Bowel Sounds, Soft Genitalia: Deferred Pelvic: Deferred Rectal: Deferred Extremities: No calf tenderness, Normal capillary refill, Normal inspection, Normal range of motion, Non-tender, No pedal edema Musculoskeletal : Apperance: Normal Neurologic: Alert, paper plate machine tender II-XII nml as Tested, No Motor Deficits, Normal Affect, Normal Mood, No Sensory Deficits Cerebellar Function: Normal Reflexes: Normal Skin: Dry, Normal Color, Warm Peripheral Pulses: 3+ Radial (R), 3+ Radial (L) Lymphatic: No Adenopathy Was a procedure done? Was a procedure done?: No Differential Dx Considerations may include: URI, PNA, viral syndrome, among others X-Ray, Labs, Meds, VS Vital Signs Date Time Temp Pulse Resp B/P (MAP) Pulse Ox O2 Delivery O2 Flow Rate FiO2 03/04/25 15:01 101.8 72 18 144/102 97 101.8 Lab Test 03/04/25 15:43 Range/Units White Blood Count 5.9 # 4.4-10.8 10^3/uL Red Blood Count 5.22 4.5-5.90 10^6/uL Hemoglobin 16.1 13.5-17.5 g/dL Hematocrit 46.4 # 41.0-53.0 % Mean Corpuscular Volume 88.9 80.0-100.0 fL Mean Corpuscular Hemoglobin 30.8 28.0-32.0 pg Mean Corpuscular Hemoglobin Concent 34.7 32.0-36.0 g/dL Red Cell Distribution Width 13.8 11.8-14.3 % Platelet Count 289 140-450 10^3/uL Mean Platelet Volume 7.6 6.9-10.8 fL Neutrophils (%) (Auto) 76.5 37.0-80.0 % Lymphocytes (%) (Auto) 12.8 10.0-50.0 % Monocytes (%) (Auto) 10.3 0.0-12.0 % Eosinophils (%) (Auto) 0.1 0.0-7.0 % Basophils (%) (Auto) 0.3 0.0-2.0 % Neutrophils # (Auto) 4.5 1.6-8.6 10 ^3/uL Lymphocytes # (Auto) 0.7 0.4-5.4 10 ^3/uL Monocytes # (Auto) 0.6 0-1.3 10 ^3/uL Eosinophils # (Auto) 0 0-0.8 10 ^3/uL Basophils # (Auto) 0 0-0.2 10 ^3/uL Nucleated Red Blood Cells 0.2 % Sodium Level Pending Potassium Level Pending Chloride Level Pending Carbon Dioxide Level Pending Anion Gap Pending Blood Urea Nitrogen Pending Creatinine Pending Glomerular Filtration Rate Calc Pending BUN/Creatinine Ratio Pending Serum Glucose Pending Calcium Level Pending Patient alert. Came in because of fever cough congestion. Hemoglobin within normal limits. Blood pressure elevated. He does have fever. Possible pneumonia. Establish intravenous access. Was given fluids. Was given Rocephin. Was given azithromycin. Explained to the patient. Continue to monitor. Time of 1ST Reevaluation: 15:50 Reevaluation 1ST: Unchanged Patient Education/Counseling: Diagnosis, Treatment, Need For Follow Up Family Education/Counseling: No Family Present SEPSIS Sepsis Screen Date sepsis recognized/suspect: Mar 04, 2025 Time Sepsis recognized/suspect: 1503 Recent Procedure: No On Antibiotic Therapy: No Respiratory Rate >20: No Heart Rate >90: No Temp<36 C (96.8 F) or >38.3 C: Yes SBP <90 or MAP <65 mmHG: No New Acute Mental Status Change: No Is the patient on CPAP, BIPAP,: No Physician Orders Chest Portable (03/04/25 15:28) Basic Metabolic Panel (03/04/25 15:28) Vital Signs Date Time Temp Pulse Resp B/P (MAP) Pulse Ox O2 Delivery O2 Flow Rate FiO2 03/04/25 15:01 101.8 72 18 144/102 97 101.8 Laboratory Tests Test 03/04/25 15:43 White Blood Count 5.9 10^3/uL (4.4-10.8) # Departure 1 Departure Time of Disposition: 16:05 Impression: Primary Impression: Pneumonia Qualified Codes: J18.9 - Pneumonia, unspecified organism Additional Impression: Hypertensive urgency Disposition: ADMITTED INPATIENT Admit to: Med Surg Condition: Guarded Critical Care Note Critical Care Time?: No Stability Stability form required: No Heart Score Heart Score: Heart Score Response (Comments) Value History N/A 0 EKG N/A 0 Age N/A 0 Risk Factors N/A 0 Troponin N/A 0 Total 0 I personally scribed for SYDNEE PRIETO MD ([email or web address]) on 03/04/25 at 15:59. Electronically submitted by Bo Goetz [email or web address]). SYDNEE PRIETO MD Mar 04, 2025 15:59
[2025-03-04 16:00] LABS: Chloride 98 mmol/L (98-107); Potassium 3.9 mmol/L (3.5-5.1)
[2025-03-04 16:01] LABS: Anion Gap 9 (5-15); Carbon Dioxide 28 mmol/L (20-31)
[2025-03-04 16:02] LABS: Calcium 9.0 mg/dL (8.7-10.4)
[2025-03-04 16:07] LABS: BUN/Creatinine Ratio 7.2 (10.0-20.0); Glucose 104 mg/dL (74-106)
--- NOTE | 2025-03-04 16:07 | DVH ---
CHEST RADIOGRAPH Indication: sob Technique: Single frontal view of the chest was obtained Comparison: None FINDINGS: Lines and Tubes: None Lungs: No focal consolidation. Pleura: No effusion. No pneumothorax. Cardiomediastinal contours: Unremarkable Bones: No acute osseous abnormality. IMPRESSION: 1. No acute cardiopulmonary disease.
[2025-03-04 16:23] LABS: Blood Urea Nitrogen 9 mg/dL (9-23); Sodium 135 mmol/L (136-145)
[2025-03-04 17:45] VITALS: PULSE 73; RESP 18; O2SAT 99
[2025-03-04] MEDS: ACETAMINOPHEN 325 MG TAB PO ONE (19:16)
[2025-03-04] MEDS ORDERED: ONDANSETRON HCL 4 MG/2 ML VIAL IV PRN (20:15)
[2025-03-04] MEDS ORDERED: MORPHINE SULFATE INJ 2 MG/ml SYRG IV PRN (20:15)
[2025-03-04 20:45] LABS: Magnesium 2.1 mg/dL (1.6-2.6); Triglycerides 93.0 mg/dL (< 150)
[2025-03-04 20:47] LABS: Cholesterol 145.0 mg/dL (< 200); HDL Cholesterol 36.0 mg/dL (40-59)
[2025-03-04 21:02] LABS: Lipase 39.0 U/L (12-53)
--- NOTE | 2025-03-04 21:03 | DVHHPRES ---
History of Present Illness Resident Creating Document: TIFFANY HAWK History of Present Illness Damon Mathis is a 45 year old male patient who presents to the ED with chief complaint of fever, productive cough (yellow/greenish sputum) epigastrium nausea while coughing, chills and dyspnea associated with infrequent nausea and nonbloody diarrhea with yellow feces. Patient was recently admitted in the hospital with diagnosis of diverticulitis (one week ago), he is currently completing antibiotic course with ciprofloxacin and metronidazole. Has no other associated symptom. Sign Past medical history: Dyslipidemia, diverticulitis diagnosed one week ago, GERD Surgical history: Denies Family history: Noncontributory Social history lives in [place] with family (next of kin is ). Denies current tobacco, alcohol and other drug abuse Allergies: Denies Home medication: Ciprofloxacin and metronidazole Patient seen and examined at bedside. Currently has no new complaints. Patient will be admitted for further evaluation. Past Medical History Per HPI Past Surgical History Per HPI Family History Per HPI Past Social History Per HPI Review of Systems Review of Systems Per HPI Allergies: Coded Allergies: NO KNOWN ALLERGIES (Unverified , 02/26/25) Medications Current Medications Medications Dose Ordered Sig/Aldo Route Start Time Stop Time Status Last Admin Dose Admin Acetaminophen 325 mg Q4HP PRN PO 03/04/25 20:15 Ondansetron HCl 4 mg Q4HP PRN IV 03/04/25 20:15 Morphine Sulfate 2 mg Q4HPRN PRN IV 03/04/25 20:15 Enoxaparin Sodium 40 mg DAILY SC 03/05/25 10:00 Sodium Chloride 1,000 ml @ 100 mls/hr Q10H IV 03/04/25 20:15 Exam Vital Signs Vital Signs Date Time Temp Pulse Resp B/P (MAP) Pulse Ox O2 Delivery O2 Flow Rate FiO2 03/04/25 19:16 101.2 03/04/25 17:48 99 Room Air* 0 21 03/04/25 17:45 73 18 03/04/25 17:43 146/93 (110) Exam Patient lying in bed, in no acute distress General: Lucid, afebrile, mucosae are moist Cardiovascular: Normal S1 and S2. No murmurs, gallops or rubs Respiratory: Normal ventilation mechanics. Clear lung sounds on auscultation Abdomen: Soft, nontender, no organomegaly, normal bowel sounds MSK/skin: Mobilizes 4 limbs. Skin is dry and warm Neurological: Oriented in 3 spheres. No motor no sensitive deficits. Pupils are isocoric and reactive Labs/Xrays Labs Test 03/04/25 20:33 03/04/25 15:43 Range/Units White Blood Count 5.9 # 4.4-10.8 10^3/uL Red Blood Count 5.22 4.5-5.90 10^6/uL Hemoglobin 16.1 13.5-17.5 g/dL Hematocrit 46.4 # 41.0-53.0 % Mean Corpuscular Volume 88.9 80.0-100.0 fL Mean Corpuscular Hemoglobin 30.8 28.0-32.0 pg Mean Corpuscular Hemoglobin Concent 34.7 32.0-36.0 g/dL Red Cell Distribution Width 13.8 11.8-14.3 % Platelet Count 289 140-450 10^3/uL Mean Platelet Volume 7.6 6.9-10.8 fL Neutrophils (%) (Auto) 76.5 37.0-80.0 % Lymphocytes (%) (Auto) 12.8 10.0-50.0 % Monocytes (%) (Auto) 10.3 0.0-12.0 % Eosinophils (%) (Auto) 0.1 0.0-7.0 % Basophils (%) (Auto) 0.3 0.0-2.0 % Neutrophils # (Auto) 4.5 1.6-8.6 10 ^3/uL Lymphocytes # (Auto) 0.7 0.4-5.4 10 ^3/uL Monocytes # (Auto) 0.6 0-1.3 10 ^3/uL Eosinophils # (Auto) 0 0-0.8 10 ^3/uL Basophils # (Auto) 0 0-0.2 10 ^3/uL Nucleated Red Blood Cells 0.2 % Sodium Level 135 #L 136-145 mmol/L Potassium Level 3.9 3.5-5.1 mmol/L Chloride Level 98 98-107 mmol/L Carbon Dioxide Level 28 20-31 mmol/L Anion Gap 9 5-15 Blood Urea Nitrogen 9 9-23 mg/dL Creatinine 1.25 0.700-1.30 mg/dL Glomerular Filtration Rate Calc 72 >90 mL/min BUN/Creatinine Ratio 7.2 L 10.0-20.0 Serum Glucose 104 74-106 mg/dL Hemoglobin A1c 5.5 <5.7 % A1C Calcium Level 9.0 8.7-10.4 mg/dL Phosphorus Level 3.0 2.4-5.1 mg/dL Magnesium Level 2.1 1.6-2.6 mg/dL Triglycerides Level 93 < 150 mg/dL Cholesterol Level 145 < 200 mg/dL LDL Cholesterol 89 < 100 mg/dL HDL Cholesterol 36 L 40-59 mg/dL SEPSIS Sepsis Screen Date sepsis recognized/suspect: Mar 04, 2025 Time Sepsis recognized/suspect: 1747 Recent Procedure: No On Antibiotic Therapy: No Respiratory Rate >20: No Heart Rate >90: No Temp<36 C (96.8 F) or >38.3 C: Yes SBP <90 or MAP <65 mmHG: No New Acute Mental Status Change: No Is the patient on CPAP, BIPAP,: No Physician Orders Chest Portable (03/04/25 15:28) Admit (03/04/25 20:15) Code Status (03/04/25 20:15) Acetaminophen Tablet (Tylenol Tablet) (03/04/25 20:15) Ondansetron Hcl (Zofran) (03/04/25 20:15) Complete Blood Count (03/05/25 04:00) Comprehensive Metabolic Panel (03/05/25 04:00) Morphine Sulfate Injection (03/04/25 20:15) Enoxaparin Sodium (Lovenox) (03/05/25 10:00) Oxygen By Nasal Cannula (03/04/25 20:15) Stat Ekg For Chest Pain (03/04/25 20:15) Notify Md Of Changes From Base (03/04/25 20:15) Chief Architect For 24 Hours (03/04/25 20:15) Emergency Dysrhythmia Protocol (03/04/25 20:15) Rhythm Strips Once Every Shift (03/04/25 20:15) Blood Culture (03/04/25 20:15) Stool Wbc (03/04/25 20:15) Stool Bacterial Culture (03/04/25 20:15) Ova & Parasite Exam (03/04/25 20:15) Urine Bacterial Culture (03/04/25 20:15) Respiratory Culture W/ Gs (03/04/25 20:15) Covid19 Antigen Malika (03/04/25 ) Rapid Influenza A&B (03/04/25 20:15) Vitamin D, 25-Hydroxy (03/04/25 20:15) Vitamin B12 (03/04/25 20:15) Urinalysis (03/04/25 20:15) Thyroid Stimulating Hormone (03/04/25 20:15) PTPTT (03/04/25 20:15) Phosphorus (03/04/25 20:15) Magnesium (03/04/25 20:15) Lipid Panel (03/04/25 20:15) Lipase (03/04/25 20:15) Drug Screen (03/04/25 20:15) Sodium Chloride 0.9% (03/04/25 20:15) Sodium Chloride 0.9% (03/04/25 20:15) Regular Diet (03/05/25 Breakfast) Ct Ab Pel Wo Con-No Oral Or Iv (03/04/25 20:59) Vital Signs Date Time Temp Pulse Resp B/P (MAP) Pulse Ox O2 Delivery O2 Flow Rate FiO2 03/04/25 19:16 101.2 03/04/25 17:48 99 Room Air* 0 21 03/04/25 17:45 73 18 99 Room Air* 0 21 03/04/25 17:43 101.2 92 17 146/93 (110) 96 101.2 03/04/25 15:01 101.8 72 18 144/102 97 101.8 Laboratory Tests Test 03/04/25 15:43 White Blood Count 5.9 10^3/uL (4.4-10.8) # Medications Medications Dose Ordered Sig/Aldo Route Start Time Stop Time Status Last Admin Dose Admin Acetaminophen 650 mg ONCE ONCE PO 03/04/25 19:15 03/04/25 19:16 DC 03/04/25 19:16 650 MG Assessment/Plan Assessment/Plan ASSESSMENT Sepsis secondary to influenza pneumonia Influenza pneumonia Recent diagnosis diverticulitis Dyslipidemia Obesity (BMI 30) PLAN We will admit to telemetry, isolated due to flu. Optimize bronchodilator treatment and on IV fluids. Currently on adjusted antibiotic (oseltamivir, ceftriaxone and metronidazole) Ordered pancultures (blood, urine, sputum). Influenza swab was positive, COVID negative. Ordered MRSA swab Ordered abdomen and pelvis CT to rule out complication of diverticulitis Patient is on regular diet DVT prophylaxis with enoxaparin Goals of care discussed with patient for over18 minutes: Full code status Discussed plan with Dr. Patrick, patient and nurses: Admitted to telemetry. Currently on adjusted antibiotic (oseltamivir, ceftriaxone and metronidazole). Optimize bronchodilator treatment and on IV fluid therapy. Plan discussed with: Patient, Spouse, Other (Nurses) My Orders Orders - TIFFANY HAWK RESIDENT Procedure Category Date Status Time Admit ADMIT 03/04/25 Transmitted 20:15 Code Status CODE 03/04/25 Transmitted 20:15 Acetaminophen Tablet PHA 03/04/25 In Process (Tylenol Tablet) 20:15 Ondansetron Hcl PHA 03/04/25 In Process (Zofran) 20:15 Complete Blood Count LAB 03/05/25 Verified 04:00 Comprehensive LAB 03/05/25 Verified Metabolic Panel 04:00 Morphine Sulfate PHA 03/04/25 In Process Injection 20:15 Enoxaparin Sodium PHA 03/05/25 In Process (Lovenox) 10:00 Oxygen By Nasal RT 03/04/25 Transmitted Cannula 20:15 Stat Ekg For Chest CATERINA 03/04/25 In Process Pain 20:15 Notify Md Of Changes CATERINA 03/04/25 In Process From Base 20:15 Chief Architect For CATERINA 03/04/25 In Process 24 Hours 20:15 Emergency Dysrhythmia CATERINA 03/04/25 In Process Protocol 20:15 Rhythm Strips Once CATERINA 03/04/25 In Process Every Shift 20:15 Blood Culture NEFTALY 03/04/25 In Process 20:15 Stool Wbc LAB 03/04/25 Logged 20:15 Stool Bacterial NEFTALY 03/04/25 Logged Culture 20:15 Ova & Parasite Exam NEFTALY 03/04/25 Logged 20:15 Urine Bacterial NEFTALY 03/04/25 Logged Culture 20:15 Respiratory Culture NEFTALY 03/04/25 Logged W/ Gs 20:15 Covid19 Antigen Malika LAB 03/04/25 Logged Rapid Influenza A&B LAB 03/04/25 Logged 20:15 Vitamin D, 25-Hydroxy LAB 03/04/25 In Process 20:15 Vitamin B12 LAB 03/04/25 In Process 20:15 Urinalysis LAB 03/04/25 Logged 20:15 Thyroid Stimulating LAB 03/04/25 In Process Hormone 20:15 PTPTT LAB 03/04/25 In Process 20:15 Phosphorus LAB 03/04/25 In Process 20:15 Magnesium LAB 03/04/25 In Process 20:15 Lipid Panel LAB 03/04/25 In Process 20:15 Lipase LAB 03/04/25 In Process 20:15 Drug Screen LAB 03/04/25 Logged 20:15 Sodium Chloride 0.9% PHA 03/04/25 In Process 20:15 Sodium Chloride 0.9% PHA 03/04/25 In Process 20:15 Regular Diet DIET 03/05/[address] Ab Pel Wo Con-No CT 03/04/25 Verified Oral Or Iv 20:59 Date of Service: Mar 04, 2025 Billing Provider: MANDEEP PATRICK MD Common Visit Codes: 32623-[id number] INP/OBS CARE (HIGH) Secondary Visit Codes: 53382-[id number] CARE PLAN 30 MINUTES TIFFANY HAWK RESIDENT Mar 04, 2025 21:03
[2025-03-04 21:05] LABS: INR 1.13 (0.9-1.15); Partial Thromboplastin Time 29.5 SEC (24.5-34.5); Prothrombin Time 11.8 sec (9.3-11.8)
--- NOTE | 2025-03-04 21:57 | DVH ---
COMPUTERIZED TOMOGRAPHY ABDOMEN AND PELVIS WITHOUT CONTRAST REASON FOR EXAM: Abdominal pain recent Hx diverticulitis COMPARISON: CT CT AB PEL WO CON-NO ORAL OR IV on DOS: 02/26/25 TECHNIQUE: Spiral scans were acquired from the diaphragm to the symphysis pubis without intravenous c ontrast administration. 2-D coronal and sagittal reformatted images were provided. Radiation optimiza tion: All CT scans at this facility use at least one of these dose optimization techniques: Automated exposure control mA and/or kV adjustment per patient size (includes targeted exams where dose is mat ched to clinical indication) or iterative reconstruction. RADIATION DOSE: CTDI: 14 mGy DLP: 879 mGy-cm FINDINGS: There is patchy and nodular airspace disease at the medial base of the left lower lobe most likely se condary to a infectious or inflammatory process. There is no pleural effusion. There is no pericardia l effusion. The spleen is not enlarged. The liver is normal in size and contour. The gallbladder is not distende d. No calcified gallstone is identified. Evaluation of the abdominal organs is suboptimal in the abse nce of intravenous contrast. Unenhanced appearance of the pancreas is unremarkable. The adrenal gland s are normal. The kidneys are similar in size. There is no hydronephrosis of either kidney. No renal , ureteral, or bladder calculus is identified. The urinary bladder is unremarkable. The prostate and seminal vesicles are within normal limits. There is descending and sigmoid colon diverticulosis. Th ere is minimal residual inflammatory change adjacent to the proximal sigmoid at the previously demons trated location of diverticulitis. The colonic stool burden is small. The appendix is normal. There is no distention of the small bowel. No free fluid is identified in the abdomen or pelvis. There is no abdominal aortic aneurysm. There is no pathologic lymphadenopathy by size criteria. No acute oss eous abnormality is identified. IMPRESSION: Patchy and nodular airspace disease at the medial base of the left lower lobe, most likely secondary to an infectious or inflammatory process. Significantly improved inflammation with only minimal inflammatory change remaining adjacent to the p roximal sigmoid at the location of previously demonstrated diverticulitis.
[2025-03-04 22:11] VITALS: PULSE 68; RESP 18; O2SAT 96
[2025-03-04 22:16] LABS: Urine Protein, UAD Negative (Negative)
[2025-03-04] MEDS: SODIUM CHLORIDE 0.9% 1,000 ML IV ONE (22:17)
[2025-03-04] MEDS: SODIUM CHLORIDE 0.9% 1,000 ML IV SCH (22:19)
[2025-03-04 22:26] LABS: Amphetamine Screen, Urine Neg (NEGATIVE); Barbiturate Scree,Urine Neg (NEGATIVE); Benzodiazephine Screen, Urine Neg (NEGATIVE); Cannabinoid Screen, Urine Neg (NEGATIVE); Cocaine Screen, Urine Neg (NEGATIVE); Opiate Scree,Urine Neg (NEGATIVE); Phencyclidine Screen, Urine Neg (NEGATIVE)
[2025-03-04 22:34] LABS: COVID19 ANTIGEN SOFIA FIA NEGATIVE (NEGATIVE)
[2025-03-05] VITALS (8 sets, daily range): BP systolic 122; BP diastolic 82; PULSE 64–83; RESP 13–20; TEMP 98.9; O2SAT 94–100
[2025-03-05] MEDS: OSELTAMIVIR 75 MG CAP PO ONE (01:03)
[2025-03-05 01:34] LABS: Albumin 4.5 g/dL (3.2-4.8); Alkaline Phosphatase 83.0 U/L (46-116); Bilirubin, Direct 0.1 mg/dL (<0.3); Bilirubin, Total 0.4 mg/dL (0.2-1.0); Total Protein 7.8 g/dL (5.7-8.2)
[2025-03-05 01:37] LABS: Alanine Aminotransferase 93.0 U/L (7-40)
[2025-03-05] MEDS: ACETAMINOPHEN 325 MG TAB PO PRN (03:14)
[2025-03-05 05:02] LABS: Hematocrit 40.5 % (41.0-53.0); Hemoglobin 14.1 g/dL (13.5-17.5); Mean Corpuscular Hemoglobin 30.7 pg (28.0-32.0); Mean Corpuscular Volume 88.0 fL (80.0-100.0); Nucleated Red Blood Cells % 0.1 %
[2025-03-05 05:49] LABS: Albumin 4.1 g/dL (3.2-4.8); Alkaline Phosphatase 73 U/L (46-116); Anion Gap 11 (5-15); BUN/Creatinine Ratio 11.6 (10.0-20.0); Blood Urea Nitrogen 14 mg/dL (9-23); Carbon Dioxide 24 mmol/L (20-31); Chloride 101 mmol/L (98-107); Glucose 97 mg/dL (74-106); Potassium 4.0 mmol/L (3.5-5.1); Total Protein 7.0 g/dL (5.7-8.2)
[2025-03-05 05:50] LABS: Bilirubin, Total 0.4 mg/dL (0.2-1.0)
[2025-03-05 05:56] LABS: Alanine Aminotransferase 75 U/L (7-40); Calcium 8.5 mg/dL (8.7-10.4); Sodium 136 mmol/L (136-145)
[2025-03-05] MEDS: IPRATROPIUM BROM 0.5 MG/2.5ML INH SOL NEB SCH (05:56)
[2025-03-05] MEDS: LEVALBUTEROL HCL 1.25 MG/3 ML NEB NEB SCH (05:56)
[2025-03-05] MEDS ORDERED: VANCOMYCIN 1GM/250ML KIT 250 ML IV ONE (09:45)
[2025-03-05] MEDS ORDERED: VANCOMYCIN PER PHARMACY 0 MG IV SCH (09:45)
[2025-03-05] MEDS: OSELTAMIVIR 75 MG CAP PO SCH (09:47)
[2025-03-05] MEDS: ENOXAPARIN SOD 40 MG/0.4 ML SYRINGE SC SCH (09:47)
[2025-03-05] MEDS: PANTOPRAZOLE 40 MG/10 ML VIAL INJ IV SCH (09:47)
[2025-03-05] MEDS: VANCOMYCIN 1.5GM/250ML 250 ML IV ONE (10:19)
--- NOTE | 2025-03-05 16:48 | DVHPNRES ---
Progress Note Date Seen: Mar 05, 2025 Resident Creating Document: TEE JOHNSON RESIDENT Medical Necessity Reason Pt with a Central, PICC or Fol: No Subjective Review of Systems History of present illness A 45 year old male patient who presents to the ED with chief complaint of fever, productive cough (yellow/greenish sputum) epigastrium nausea while coughing, chills and dyspnea associated with infrequent nausea and nonbloody diarrhea with yellow feces. Patient was recently admitted in the hospital with diagnosis of diverticulitis (one week ago), he is currently completing antibiotic course with ciprofloxacin and metronidazole. Has no other associated symptom. Past medical history: Dyslipidemia, diverticulitis diagnosed one week ago, GERD Surgical history: Denies Family history: Noncontributory Social history lives in [place] with family (next of kin is ). Denies current tobacco, alcohol and other drug abuse Allergies: Denies Home medication: Ciprofloxacin and metronidazole 03/05/2025 Patient is seen and examined at bedside. Patient is currently on 2 L/min of oxygen through nasal cannula Mentioned improvement in his symptoms Patient is currently in isolation for influenza A in the ER Objective vital signs Vital Sign Date Time Temp Pulse Resp B/P (MAP) Pulse Ox O2 Delivery O2 Flow Rate FiO2 03/05/25 14:03 72 03/05/25 11:09 18 99 03/05/25 11:03 Nasal Cannula* 2 28 03/05/25 08:00 98.4 108/59 (75) 98.4 Total Intake and Output 03/04/25 03/04/25 03/05/25 15:00 23:00 07:00 Intake Total 1000 ml 150 ml Balance 1000 ml 150 ml medications Current Medications Medications Dose Ordered Sig/Aldo Route Start Time Stop Time Status Last Admin Dose Admin Acetaminophen 325 mg Q4HP PRN PO 03/04/25 20:15 03/05/25 03:14 325 MG Ondansetron HCl 4 mg Q4HP PRN IV 03/04/25 20:15 Morphine Sulfate 2 mg Q4HPRN PRN IV 03/04/25 20:15 Enoxaparin Sodium 40 mg DAILY SC 03/05/25 10:00 03/05/25 09:47 40 MG Sodium Chloride 1,000 ml @ 100 mls/hr Q10H IV 03/04/25 20:15 03/05/25 16:15 100 MLS/HR Oseltamivir Phosphate 75 mg Q12HR PO 03/05/25 10:00 03/10/25 09:59 03/05/25 09:47 75 MG Ceftriaxone Sodium 50 ml @ 100 mls/hr Q24H IV 03/05/25 23:30 Metronidazole 100 ml @ 100 mls/hr Q8HR IV 03/05/25 06:00 03/05/25 14:11 100 MLS/HR Levalbuterol HCl 0.625 mg Q6HR NEB 03/05/25 06:00 03/05/25 11:03 0.625 MG Ipratropium [place] 0.5 mg Q6HWA NEB 03/05/25 06:00 03/05/25 11:03 0.5 MG Pantoprazole Sodium 40 mg DAILY IV 03/05/25 10:00 03/05/25 09:47 40 MG Vancomycin HCl 0 ml @ 0 mls/hr UD IV 03/05/25 09:45 Examination Examination General Appearance: Alert, Oriented X3, Cooperative, No acute distress HEENT: EOMI Respiratory: Clear to auscultation, Normal air movement, no crackles, no wheezing Cardiovascular: Regular rate, Normal S1, Normal S2 Abdominal: Normal bowel sounds Extremities: No cyanosis, No edema, Normal pulses, No tenderness/swelling Skin: No rashes, No breakdown Neuro: Normal speech and tone laboratory and microbiology Laboratory Tests 03/05/25 04:51 Test 03/05/25 04:51 Range/Units Serum Glucose 97 74-106 mg/dL Microbiology Date/Time Source Procedure Growth Status 03/05/25 09:17 Nose MRSA Screen - Final Complete Labs and/or images reviewed: Labs reviewed by me, Image(s) reviewed by me Problem List/Assessment/Plan Problem List/Assessment/Plan Assessment/plan # acute hypoxic respiratory failure likely due to influenza A pneumonia/community-acquired pneumonia Currently on 2 L/min of oxygen through nasal cannula # influenza A pneumonia # ?Overlapping community-acquired pneumonia/Gram-negative/Gram-positive -started on oseltamivir Currently on vancomycin plus azithromycin plus ceftriaxone # recent diverticulitis CT scan Continue IV antibiotics now on regular diet # dyslipidemia 1.5% ASCVD score No indication for statin at this point of time # GERD Continue Protonix Code status discussed with the patient for 20 minutes, full code Case discussed with Dr. Mckeon Plan discussed with: Patient, Other (RN) My Orders My Orders Orders - TEE JOHNSON RESIDENT Procedure Category Date Status Time Vancomycin Per PHA 03/05/25 In Process Pharmacy 09:45 Complete Blood Count LAB 03/06/25 Verified 04:00 Creatinine LAB 03/06/25 Verified 04:00 Vancomycin,Random LAB 03/06/25 Verified 04:00 Addendum Addendum Addendum I was physically present for the [place] portions of the service provided to patient by THE RESIDENT. I have reviewed the documentation, discussed the case with resident and agree with the resident's documentation except as noted. Also the patient's clinical case was discussed with the patient's nurse. This medical document was created using an electronic medical record system with computerized dictation system. Although this document has been carefully reviewed, there might still be some phonetic and typographical errors. These areas are purely typographical due to imperfections of the software programs, and do not reflect any compromise in the patient's medical care. Late signature. Date of Service: Mar 05, 2025 Billing Provider: ROSALBA MCKEON MD Common Visit Codes: [id number] INP/OBS CARE(HIGH) Secondary Visit Codes: [id number] CARE PLAN 30 MINUTES (20 minutes) TEE JOHNSON RESIDENT Mar 05, 2025 16:48 ROSALBA MCKEON MD Mar 06, 2025 12:19
[2025-03-05] MEDS: AZITHROMYCIN 500MG/ 250ML 250 ML IV ONE (17:43)
[2025-03-05] MEDS: ACETAMINOPHEN 325 MG TAB PO ONE (20:57)
[2025-03-06] VITALS (13 sets, daily range): BP systolic 116–133; BP diastolic 76–84; PULSE 54–100; RESP 13–20; TEMP 98.5–99.5; O2SAT 58–100
[2025-03-06 07:39] LABS: Hematocrit 42.5 % (41.0-53.0); Hemoglobin 14.8 g/dL (13.5-17.5); Mean Corpuscular Hemoglobin 30.7 pg (28.0-32.0); Mean Corpuscular Volume 88.1 fL (80.0-100.0); Nucleated Red Blood Cells % 0.1 %
[2025-03-06 07:46] LABS: Anion Gap 8 (5-15); Carbon Dioxide 29 mmol/L (20-31); Chloride 102 mmol/L (98-107); Potassium 4.2 mmol/L (3.5-5.1); Sodium 139 mmol/L (136-145)
[2025-03-06 07:47] LABS: Calcium 8.5 mg/dL (8.7-10.4)
[2025-03-06 07:52] LABS: BUN/Creatinine Ratio 9.2 (10.0-20.0); Blood Urea Nitrogen 10 mg/dL (9-23); Glucose 91 mg/dL (74-106); Magnesium 2.1 mg/dL (1.6-2.6)
[2025-03-06] MEDS: AZITHROMYCIN 500MG/ 250ML 250 ML IV SCH (08:38)
[2025-03-06] MEDS: VANCOMYCIN 1GM/250ML KIT 250 ML IV SCH (11:27)
[2025-03-06] MEDS: FUROSEMIDE 20 MG TAB PO ONE (15:42)
[2025-03-06] MEDS: metroNIDAZOLE 500 MG TAB PO SCH (15:42)
--- NOTE | 2025-03-06 19:06 | DVHPNRES ---
Progress Note Date Seen: Mar 06, 2025 Resident Creating Document: PRATIBHA FREITAS RESIDENT Medical Necessity Reason Pt with a Central, PICC or Fol: No Subjective Review of Systems Damon Morrison is a 45-year-old male, with no relevant past medical history. The patient came to the ED with chief complaint of 5 days of productive cough (yellow/greenish sputum) associated with intermittent subjective fever, chills, dyspnea and, watery diarrhea. On further questioning, the patient reported that 1 week ago he was admitted in [facility] with diagnosis of diverticulitis and was discharge with ciprofloxacin and metronidazole. The patient denies vomit, sick contacts, recent travels or other symptoms. The patient start having dyspnea and epigastric pain due to his cough, this prompted his visit to the ED. In the ED: Serology for influenza was positive and images showed: Patchy and nodular airspace disease at the medial base of the left lower lobe, most likely secondary to an infectious or inflammatory process. Significantly improved inflammation with only minimal inflammatory change remaining adjacent to the proximal sigmoid at the location of previously demonstrated diverticulitis. The patient was admitted and started on Ceftriaxone 1g, azithromycin, Vancomycin( for possible S. Aureus pneumonia), Olseltamivir and breathing treatments. Past medical history: Dyslipidemia, diverticulitis diagnosed one week ago, GERD. Surgical history: Denies. Family history: Noncontributory. Social history lives in [place] with family (next of kin is ). Denies current tobacco, alcohol and other drug abuse. Allergies: Denies. Home medication: Ciprofloxacin and metronidazole Hospital course: 03/05/2025. Patient is seen and examined at bedside. Patient is currently on 2 L/min of oxygen through nasal cannula. Mentioned improvement in his symptoms . Patient is currently in isolation for influenza A in the ER. On 03/06/25 the patient was evaluated at the bedside. VS, labs and chart was reviewed. The patient reports feeling better, with less shortness of breath but still with NC with O2 at 2L, saturating 98%. The cough has improved with breathing treatment. The following medication were stopped: IV Vancomycin and IV Azithromicyn; and was started on: Levaquin and Flagyl oral. Laxis 20mg po once was also ordered. Blood and urine culture were negative. Sputum culture preliminary shows: Mix oropharynx stephen. Patient's family was contacted, did not responded on 3 attempts to emergency contact on chart. We will continue this patient follow up. Constitutional: reports: improvement of SOB; denies: chills, diaphoresis, fatigue, fever, malaise, sweats, others EENTM: denies: blurred vision, double vision, ear bleeding, ear discharge, ear drainage, ear pain, ear ringing, eye pain, eye redness, hearing loss, mouth pain, mouth swelling, nasal discharge, nose bleeding, nose congestion, nose pain, photophobia, tearing, throat pain, throat swelling, voice changes, others Respiratory: reports: improvement of cough,still wet with yellowish sputum. Denies; hemoptysis, orthopnea, SOB at rest, stridor, wheezing, others Cardiovascular: denies: chest pain, dizzy spells, diaphoresis, Dyspnea on exertion, edema, irregular heart beat, left arm pain, lightheadedness, palpitations, PND, syncope, others Gastrointestinal: denies: abdomen distended, abdominal pain, blood streaked bowels, constipated, diarrhea, dysphagia, difficulty swallowing, hematemesis, melena, nausea, poor appetite, poor fluid intake, rectal bleeding, rectal pain, vomiting, others Genitourinary: denies: burning, dysuria, flank pain, frequency, hematuria, incontinence, penile discharge, penile sore, pain, testicle pain, testicle swelling, urgency, others Neurological: denies: dizziness, fainting, headache, left sided numbness, left sided weakness, numbness, paresthesia, pre-existing deficit, right sided numbness, right sided weakness, seizure, speech problems, tingling, tremors, weakness, others Musculoskeletal: denies: back pain, gout, joint pain, joint swelling, muscle pain, muscle stiffness, neck pain, others Integumetry: denies: bruises, change in color, change in hair/nails, dryness, laceration, lesions, lumps, rash, wounds, others Allergic/Immunocompromised: denies: Difficulty Healing, Frequent Infections, Hives, Itching, others Hematologic/Lymphatic: denies: anemia, blood clots, easy bleeding, easy bruising, swollen glands, others Endocrine: denies: excessive hunger, excessive sweating, excessive thirst, excessive urination, flushing, intolerance to cold, intolerance to heat, unexplained weight gain, unexplained weight loss, others Psychiatric: denies: anxiety, bipolar disorder, depression, hopeless, panic disorder, schizophrenia, sleepless, suicidal, others Patient reports: Feels better Changes from previous H/P or p: No Changes Objective vital signs Vital Sign Date Time Temp Pulse Resp B/P (MAP) Pulse Ox O2 Delivery O2 Flow Rate FiO2 03/06/25 18:39 98 Nasal Cannula* 3 32 03/06/25 18:39 58 18 03/06/25 17:00 99.5 133/84 (100) 99.5 Total Intake and Output 03/05/25 03/05/25 03/06/25 15:00 23:00 07:00 Intake Total 1150.000 ml 200 ml Output Total 800 ml Balance 1150.000 ml 200 ml -800 ml medications Current Medications Medications Dose Ordered Sig/Aldo Route Start Time Stop Time Status Last Admin Dose Admin Acetaminophen 325 mg Q4HP PRN PO 03/04/25 20:15 03/05/25 03:14 325 MG Ondansetron HCl 4 mg Q4HP PRN IV 03/04/25 20:15 Morphine Sulfate 2 mg Q4HPRN PRN IV 03/04/25 20:15 Enoxaparin Sodium 40 mg DAILY SC 03/05/25 10:00 03/06/25 08:38 40 MG Oseltamivir Phosphate 75 mg Q12HR PO 03/05/25 10:00 03/10/25 09:59 03/06/25 08:48 75 MG Ceftriaxone Sodium 50 ml @ 100 mls/hr Q24H IV 03/05/25 23:30 03/05/25 23:25 100 MLS/HR Levalbuterol HCl 0.625 mg Q6HR NEB 03/05/25 06:00 03/06/25 18:39 0.625 MG Ipratropium [place] 0.5 mg Q6HWA NEB 03/05/25 06:00 03/06/25 18:39 0.5 MG Levofloxacin 500 mg DAILY PO 03/07/25 10:00 Metronidazole 500 mg Q8HR PO 03/06/25 14:00 03/06/25 15:42 500 MG Pantoprazole Sodium 40 mg DAILY@0600 PO 03/07/25 06:00 Examination General Appearance: Mild distress HEENT: Normal ENT Inspection, Pharynx Normal, TMs Normal Neck: Full Range of Motion, Non-Tender, Normal, Normal Inspection Respiratory: Chest Non-Tender, Lungs: Mild rales on both bases. No Accessory Muscle Use, No Respiratory Distress. Cardiovascular: No Edema, No JVD, No Murmur, No Gallop, Normal Peripheral Pulses, Regular Rate/Rhythm Breast Exam: Deferred Gastrointestinal: No Organomegaly, Non Tender, No Pulsatile Mass, Normal Bowel Sounds, Soft Genitalia: Deferred Pelvic: Deferred Rectal: Deferred Extremities: No calf tenderness, Normal capillary refill, Normal inspection, Normal range of motion, Non-tender, No pedal edema Musculoskeletal : No motor deficit, walking, adequate ROM in all 4 extremities. Neurologic: Alert, No Motor Deficits, No Sensory Deficits Skin: Normal Color Peripheral Pulses: 3+ Radial (R), 3+ Radial (L) Lymphatic: No Adenopathy laboratory and microbiology Laboratory Tests 03/06/25 07:17 Test 03/06/25 07:17 Range/Units Serum Glucose 91 74-106 mg/dL Microbiology Date/Time Source Procedure Growth Status 03/05/25 09:17 Nose MRSA Screen - Final Complete 03/04/25 22:00 Stool Stool Culture - Preliminary Resulted 03/04/25 22:00 Stool Shiga Toxin I & II - Final Resulted 03/04/25 21:20 Voided Urine Urine Culture - Preliminary Resulted 03/04/25 20:35 Blood Blood Culture - Preliminary NO GROWTH AFTER 24 HOURS OF INCUBATION. Resulted 03/04/25 20:00 Sputum Gram Stain - Final Resulted 03/04/25 20:00 Sputum Respiratory Culture - Preliminary Resulted Labs and/or images reviewed: Labs reviewed by me, Image(s) reviewed by me Problem List/Assessment/Plan Problem List/Assessment/Plan #Sepsis due to Gram+/- bacterial pneumonia and Influenza A Continue with antibiotics: Levaquin and flagyl Continue Oseltamivir 75mg BID Discontinue Vancomycin, ceftriaxone and azithromycin WBC: [id number]/uL #Acute hypoxic respiratory failure likely due to influenza A and possible Gram +/- bacterial pneumonia Currently on 2 L/min of oxygen through nasal cannula Continue with antibiotics #Influenza A pneumonia # Possible Overlapping community-acquired pneumonia/Gram-negative/Gram-positive -started on oseltamivir -Discontinuate vancomycin, azithromycin and ceftriaxone. #History of Recent diverticulitis Continue Oral Flagyl TID now on regular diet #Dyslipidemia 1.5% ASCVD score No indication for statin at this point of time # GERD Stop protonics IV and continue with oral protonix: pantoprazol 40mg po qd Goals of care discussed with the patient > 35 min. Discussed plan of care with Dr. Pollack Code status: Full code PCP: Does not recall name at this time. Plan discussed with: Patient, the patient agrees with the plan. Plan discussed with: Patient My Orders My Orders Orders - PRATIBHA FREITAS RESIDENT Procedure Category Date Status Time Levofloxacin Tablet PHA 03/07/25 In Process (Levaquin Tablet) 10:00 Metronidazole Tablet PHA 03/06/25 In Process (Flagyl Tablet) 14:00 Pantoprazole Tablet PHA 03/07/25 In Process (Protonix Tablet) 06:00 Incentive Spirometry ORDERS 03/06/25 Transmitted 12:43 Complete Blood Count LAB 03/06/25 Transmitted 18:58 Complete Blood Count LAB 03/07/25 Verified 04:00 Comprehensive LAB 03/07/25 Verified Metabolic Panel 04:00 Date of Service: Mar 06, 2025 Billing Provider: MANDEEP POLLACK MD Common Visit Codes: [id number] INP/OBS CARE(HIGH) PRATIBHA FREITAS RESIDENT Mar 06, 2025 19:06 JUSTIN TOUSSAINT RESIDENT Mar 06, 2025 21:47 MANDEEP POLLACK MD Mar 07, 2025 11:48
[2025-03-07] VITALS (9 sets, daily range): BP systolic 118–124; BP diastolic 82–87; PULSE 57–65; RESP 16–20; TEMP 97.3; O2SAT 94–100
[2025-03-07] MEDS: PANTOPRAZOLE 40 MG TAB PO SCH (05:39)
[2025-03-07 07:02] LABS: Hematocrit 44.2 % (41.0-53.0); Hemoglobin 15.5 g/dL (13.5-17.5); Mean Corpuscular Hemoglobin 30.7 pg (28.0-32.0); Mean Corpuscular Volume 88.0 fL (80.0-100.0); Nucleated Red Blood Cells % 0.4 %
[2025-03-07 07:25] LABS: Albumin 4.0 g/dL (3.2-4.8); Alkaline Phosphatase 68 U/L (46-116); Anion Gap 9 (5-15); BUN/Creatinine Ratio 8.3 (10.0-20.0); Bilirubin, Total 0.4 mg/dL (0.2-1.0); Blood Urea Nitrogen 10 mg/dL (9-23); Calcium 8.8 mg/dL (8.7-10.4); Carbon Dioxide 30 mmol/L (20-31); Chloride 100 mmol/L (98-107); Glucose 89 mg/dL (74-106); Potassium 4.3 mmol/L (3.5-5.1); Sodium 139 mmol/L (136-145); Total Protein 7.0 g/dL (5.7-8.2)
[2025-03-07 07:34] LABS: Alanine Aminotransferase 56 U/L (7-40)
[2025-03-07] MEDS ORDERED: METR-344 PO (08:59)
[2025-03-07] MEDS ORDERED: ALBUAER3 IN (08:59)
[2025-03-07] MEDS ORDERED: LEVO750T40 PO (08:59)
[2025-03-07] MEDS: levoFLOXacin 500 MG TAB PO SCH (09:26)
--- NOTE | 2025-03-07 11:01 | DVHDSRES ---
Discharge Summary Date of Admission Resident Creating Document: PRATIBHA FREITAS RESIDENT Mar 04, 2025 at 20:15 Date of Discharge: Mar 07, 2025 Admitting Diagnosis #Sepsis possible due to due to Gram+/- bacterial pneumonia and Influenza A #Community acquired pneumonia bacterial vs Viral #Influenza infection #diverticulitis Wounds: No wounds reported during admission. Labs/Diagnostic Data: Laboratory Results Test 03/07/25 06:18 03/06/25 07:17 03/04/25 22:00 03/04/25 21:20 White Blood Count 3.8 10^3/uL (4.4-10.8) Red Blood Count 5.03 10^6/uL (4.5-5.90) Hemoglobin 15.5 g/dL (13.5-17.5) Hematocrit 44.2 % (41.0-53.0) Mean Corpuscular Volume 88.0 fL (80.0-100.0) Mean Corpuscular Hemoglobin 30.7 pg (28.0-32.0) Mean Corpuscular Hemoglobin Concent 35.0 g/dL (32.0-36.0) Red Cell Distribution Width 14.4 % (11.8-14.3) Platelet Count 273 10^3/uL (140-450) Mean Platelet Volume 7.7 fL (6.9-10.8) Neutrophils (%) (Auto) 42.5 % (37.0-80.0) Lymphocytes (%) (Auto) 44.9 % (10.0-50.0) Monocytes (%) (Auto) 11.8 % (0.0-12.0) Eosinophils (%) (Auto) 0.4 % (0.0-7.0) Basophils (%) (Auto) 0.4 % (0.0-2.0) Neutrophils # (Auto) 1.6 10 ^3/uL (1.6-8.6) Lymphocytes # (Auto) 1.7 10 ^3/uL (0.4-5.4) Monocytes # (Auto) 0.5 10 ^3/uL (0-1.3) Eosinophils # (Auto) 0 10 ^3/uL (0-0.8) Basophils # (Auto) 0 10 ^3/uL (0-0.2) Nucleated Red Blood Cells 0.4 % Sodium Level 139 mmol/L (136-145) Potassium Level 4.3 mmol/L (3.5-5.1) Chloride Level 100 mmol/L (98-107) Carbon Dioxide Level 30 mmol/L (20-31) Anion Gap 9 (5-15) Blood Urea Nitrogen 10 mg/dL (9-23) Creatinine 1.20 mg/dL (0.700-1.30) Glomerular Filtration Rate Calc 76 mL/min (>90) BUN/Creatinine Ratio 8.3 (10.0-20.0) Serum Glucose 89 mg/dL (74-106) Calcium Level 8.8 mg/dL (8.7-10.4) Total Bilirubin 0.4 mg/dL (0.2-1.0) Aspartate Amino Transferase (AST) 38 U/L (13-40) Alanine Aminotransferase (ALT) 56 U/L (7-40) Alkaline Phosphatase 68 U/L (46-116) Total Protein 7.0 g/dL (5.7-8.2) Albumin 4.0 g/dL (3.2-4.8) Magnesium Level 2.1 mg/dL (1.6-2.6) Random Vancomycin Level 3.4 ug/mL (5-10) Stool for White Cells None seen Urine Color Light-yellow (Yellow) Urine Clarity Clear (Clear) Urine pH 5.0 (5.0-9.0) Urine Specific Eldred 1.011 (1.001-1.035) Urine Protein Negative (Negative) Urine Ketones 1+ (Negative) Urine Blood Trace /uL (Negative) Urine Nitrite Negative (Negative) Urine Bilirubin Negative (Negative) Urine Urobilinogen Normal mg/dL (Negative) Urine Leukocyte Esterase Trace /uL (Negative) Urine RBC <1 /hpf (0 - 3) Urine Microscopic WBC < 1 /HPF (0-3) Urine Squamous Epithelial Cells Few /hpf (<5) Urine Bacteria None seen /hpf (None Seen) Urine Glucose Normal mg/dL (Normal) Urine Opiates Screen Neg (NEGATIVE) Urine Fentanyl Screen Pos (NEGATIVE) Urine Barbiturates Screen Neg (NEGATIVE) Urine Phencyclidine Screen Neg (NEGATIVE) Urine Amphetamines Screen Neg (NEGATIVE) Urine Benzodiazepines Screen Neg (NEGATIVE) Urine Cocaine Screen Neg (NEGATIVE) Urine Cannabinoids Screen Neg (NEGATIVE) Test 03/04/25 20:33 03/04/25 20:15 03/04/25 15:43 Prothrombin Time 11.8 sec (9.3-11.8) Prothrombin Time INR 1.13 (0.9-1.15) Activated Partial Thromboplast Time 29.5 SEC (24.5-34.5) Direct Bilirubin 0.1 mg/dL (<0.3) Influenza Type A Antigen Positive (Negative) Influenza Type B Antigen Negative (Negative) SARS-CoV-2 Antigen (Rapid) Negative (NEGATIVE) Hemoglobin A1c 5.5 % A1C (<5.7) Phosphorus Level 3.0 mg/dL (2.4-5.1) Triglycerides Level 93 mg/dL (< 150) Cholesterol Level 145 mg/dL (< 200) LDL Cholesterol 89 mg/dL (< 100) HDL Cholesterol 36 mg/dL (40-59) Lipase 39 U/L (12-53) Vitamin B12 Level 469 pg/mL (211-911) Vitamin D 25-Hydroxy 33.6 ng/mL (30.0-100) Thyroid Stimulating Hormone (TSH) 0.82 uIU/mL (0.55-4.78) Other Laboratory Tests 03/07/25 06:18 Brief Hx & Hospital Course: Damon Morrison is a 45-year-old male, with no relevant past medical history. The patient came to the ED with chief complaint of 5 days of productive cough (yellow/greenish sputum) associated with intermittent subjective fever, chills, dyspnea and, watery diarrhea. On further questioning, the patient reported that 1 week ago he was admitted in [facility] with diagnosis of diverticulitis and was discharge with ciprofloxacin and metronidazole. The patient denies vomit, sick contacts, recent travels or other symptoms. The patient start having dyspnea and epigastric pain due to his cough, this prompted his visit to the ED. In the ED: Serology for influenza was positive and images showed: Patchy and nodular airspace disease at the medial base of the left lower lobe, most likely secondary to an infectious or inflammatory process. Significantly improved inflammation with only minimal inflammatory change remaining adjacent to the proximal sigmoid at the location of previously demonstrated diverticulitis. The patient was admitted and started on Ceftriaxone 1g, azithromycin, Vancomycin( for possible S. Aureus pneumonia), Olseltamivir and breathing treatments. Past medical history: Dyslipidemia, diverticulitis diagnosed one week ago, GERD. Surgical history: Denies. Family history: Noncontributory. Social history lives in [place] with family (next of kin is ). Denies current tobacco, alcohol and other drug abuse. Allergies: Denies. Home medication: Ciprofloxacin and metronidazole Hospital course: 03/05/2025. Patient is seen and examined at bedside. Patient is currently on 2 L/min of oxygen through nasal cannula. Mentioned improvement in his symptoms . Patient is currently in isolation for influenza A in the ER. On 03/06/25 the patient was evaluated at the bedside. VS, labs and chart was reviewed. The patient reports feeling better, with less shortness of breath but still with NC with O2 at 2L, saturating 98%. The cough has improved with breathing treatment. The following medication were stopped: IV Vancomycin and IV Azithromicyn; and was started on: Levaquin and Flagyl oral. Laxis 20mg po once was also ordered. Blood and urine culture were negative. Sputum culture preliminary shows: Mix oropharynx stephen. Patient's family was contacted, did not responded on 3 attempts to emergency contact on chart. Today, 03/07/25. Patient's VS, labs and chart was reviewed, VS and labs within normal limit. The patient was evaluated at the bed side. The patient reports feeling well, with resolved SOB and fever. O2 by NC has been discontinued, patient now breading at room air with O2sat of 98%. The patient will be discharge home with oral antibiotic for pneumonia and diverticulitis and albuterol inhaler and he will F/U with pcp and GI doctor. Constitutional: reports: SOB resolved; denies: chills, diaphoresis, fatigue, fever, malaise, sweats, others EENTM: denies: blurred vision, double vision, ear bleeding, ear discharge, ear drainage, ear pain, ear ringing, eye pain, eye redness, hearing loss, mouth pain, mouth swelling, nasal discharge, nose bleeding, nose congestion, nose pain, photophobia, tearing, throat pain, throat swelling, voice changes, others Respiratory: reports: improvement of cough Denies; hemoptysis, orthopnea, SOB at rest, stridor, wheezing, others Cardiovascular: denies: chest pain, dizzy spells, diaphoresis, Dyspnea on exertion, edema, irregular heart beat, left arm pain, lightheadedness, palpitations, PND, syncope, others Gastrointestinal: denies: abdomen distended, abdominal pain, blood streaked bowels, constipated, diarrhea, dysphagia, difficulty swallowing, hematemesis, melena, nausea, poor appetite, poor fluid intake, rectal bleeding, rectal pain, vomiting, others Genitourinary: denies: burning, dysuria, flank pain, frequency, hematuria, incontinence, penile discharge, penile sore, pain, testicle pain, testicle swelling, urgency, others Neurological: denies: dizziness, fainting, headache, left sided numbness, left sided weakness, numbness, paresthesia, pre-existing deficit, right sided numbness, right sided weakness, seizure, speech problems, tingling, tremors, weakness, others Musculoskeletal: denies: back pain, gout, joint pain, joint swelling, muscle pain, muscle stiffness, neck pain, others Integumetry: denies: bruises, change in color, change in hair/nails, dryness, laceration, lesions, lumps, rash, wounds, others Allergic/Immunocompromised: denies: Difficulty Healing, Frequent Infections, Hives, Itching, others Hematologic/Lymphatic: denies: anemia, blood clots, easy bleeding, easy bruising, swollen glands, others Endocrine: denies: excessive hunger, excessive sweating, excessive thirst, excessive urination, flushing, intolerance to cold, intolerance to heat, unexplained weight gain, unexplained weight loss, others Psychiatric: denies: anxiety, bipolar disorder, depression, hopeless, panic disorder, schizophrenia, sleepless, suicidal, others Patient reports: Feels better Changes from previous H/P or p: No Changes General Appearance: Non in distress HEENT: Normal ENT Inspection, Pharynx Normal, TMs Normal Neck: Full Range of Motion, Non-Tender, Normal, Normal Inspection Respiratory: Chest Non-Tender, Lungs: No crackles on lung, Lungs sound clear. No Accessory Muscle Use, No Respiratory Distress. Cardiovascular: No Edema, No JVD, No Murmur, No Gallop, Normal Peripheral Pulses, Regular Rate/Rhythm Breast Exam: Deferred Gastrointestinal: No Organomegaly, Non Tender, No Pulsatile Mass, Normal Bowel Sounds, Soft Genitalia: Deferred Pelvic: Deferred Rectal: Deferred Extremities: No calf tenderness, Normal capillary refill, Normal inspection, Normal range of motion, Non-tender, No pedal edema Musculoskeletal : No motor deficit, walking, adequate ROM in all 4 extremities. Neurologic: Alert, No Motor Deficits, No Sensory Deficits Skin: Normal Color Peripheral Pulses: 3+ Radial (R), 3+ Radial (L) Lymphatic: No Adenopathy laboratory and microbiology Consults/Reason for consult None Operations or Procedures PROCEDURE(s): CXRP - CHEST PORTABLE REASON: sob ORDER NUMBER(s): [id number], ACCESSION NUMBER(s): [id number] CHEST RADIOGRAPH Indication: sob Technique: Single frontal view of the chest was obtained Comparison: None FINDINGS: Lines and Tubes: None Lungs: No focal consolidation. Pleura: No effusion. No pneumothorax. Cardiomediastinal contours: Unremarkable Bones: No acute osseous abnormality. IMPRESSION: 1. No acute cardiopulmonary disease. COMPUTERIZED TOMOGRAPHY ABDOMEN AND PELVIS WITHOUT CONTRAST REASON FOR EXAM: Abdominal pain recent Hx diverticulitis COMPARISON: CT CT AB PEL WO CON-NO ORAL OR IV on DOS: 02/26/25 TECHNIQUE: Spiral scans were acquired from the diaphragm to the symphysis pubis without intravenous contrast administration. 2-D coronal and sagittal reformatted images were provided. Radiation optimization: All CT scans at this facility use at least one of these dose optimization techniques: Automated exposure control mA and/or kV adjustment per patient size (includes targeted exams where dose is matched to clinical indication) or iterative reconstruction. RADIATION DOSE: CTDI: 14 mGy DLP: 879 mGy-cm FINDINGS: There is patchy and nodular airspace disease at the medial base of the left lower lobe most likely secondary to a infectious or inflammatory process. There is no pleural effusion. There is no pericardial effusion. The spleen is not enlarged. The liver is normal in size and contour. The gallbladder is not distended. No calcified gallstone is identified. Evaluation of the abdominal organs is suboptimal in the absence of intravenous contrast. Unenhanced appearance of the pancreas is unremarkable. The adrenal glands are normal. The kidneys are similar in size. There is no hydronephrosis of either kidney. No renal, ureteral, or bladder calculus is identified. The urinary bladder is unremarkable. The prostate and seminal vesicles are within normal limits. There is descending and sigmoid colon diverticulosis. There is minimal residual inflammatory change adjacent to the proximal sigmoid at the previously demonstrated location of diverticulitis. The colonic stool burden is small. The appendix is normal. There is no distention of the small bowel. No free fluid is identified in the abdomen or pelvis. There is no abdominal aortic aneurysm. There is no pathologic lymphadenopathy by size criteria. No acute osseous abnormality is identified. IMPRESSION: Patchy and nodular airspace disease at the medial base of the left lower lobe, most likely secondary to an infectious or inflammatory process. Significantly improved inflammation with only minimal inflammatory change remaining adjacent to the proximal sigmoid at the location of previously demonstrated diverticulitis. Condition at Discharge: Stable Final Diagnosis/Problems List Sepsis Pneumonia Influenza Diverticulitis Discharge Disposition: Home SNF Discharge Will this Physician continue t: No Discharge Instruct/Medications Diet: Regular Activity: No Restrictions, As Tolerated Follow Up/Referral: F/U with PCP in 1 week F/U with GI for colonoscopy in 8 weeks Medications: Levofloxacin 750mg po daily for 7 days Metronidazole 500mg TID for 7 days Albuterol inhaler Scheduled Levofloxacin Hemihydrate (Levofloxacin), 1 TAB PO DAILY Metronidazole (Flagyl), 1 TAB PO TID Scheduled PRN Albuterol Sulfate (Ventolin Mdi), 90 MCG IN DAILYPRN PRN Discontinued Medications Ciprofloxacin Hcl (Cipro), 500 MG PO BID Metronidazole (Flagyl), 500 MG PO TID Polyethylene Glycol (Miralax), 17 GM PO DAILYP PRN Discharge Statement: "Patient was advised to return to the ER or call 911 if any headaches, dizziness, shortness of breath, chest pain, abdominal pain, bleeding, fevers, or worsening of medical condition. Patient was counseled about treatment plan, medications, possible side effects, patientverbalized understanding. All questions were answered to the best of my ability. This discharge took greater then 30 minutes in planning, reviewing documentation, counseling the patient, and discussing with other team members." ASSESSMENT ASSESSMENT Assessment #Sepsis due to Gram+/- bacterial pneumonia and Influenza A Discharge home today with: Continue with antibiotics: Levaquin 750mg po qd for 7 days Albuterol inhaler. F/U PCP in one week #Acute hypoxic respiratory failure likely due to influenza A and possible Gram +/- bacterial pneumonia. Resolved 2 L/min of oxygen through nasal cannula: Discontinuated fue to improvement Discharge today #Influenza A pneumonia # Possible Overlapping community-acquired pneumonia/Gram-negative/Gram-positive As above #History of Recent diverticulitis Continue Oral Flagyl 500mg TID for 7 days F/u with GI for colonoscopy in 8 weeks. #Dyslipidemia 1.5% ASCVD score No indication for statin at this point of time # GERD F/U with GI Goals of care discussed with the patient > 35 min. Discussed plan of care with Dr. Pollack Code status: Full code PCP: Does not recall name at this time. Plan discussed with: Patient, the patient agrees with discharge the plan. Date of Service: Mar 07, 2025 Billing Provider: MANDEEP POLLACK MD Common Visit Codes: 48795-FRN/OBS DISCH DAY >30min PRATIBHA FREITAS RESIDENT Mar 07, 2025 11:01 MANDEEP POLLACK MD Mar 07, 2025 11:57
== END 2025-03-07 11:45 | disposition home or self-care (01) | DRG 720 ==
LOC: ER 14:55 → OVERFLOW 20:15 → TELE-WESTW 03-06 12:03
PROVIDERS: ADMIT Internal Medicine; ATTEND Internal Medicine
DX: A41.89 Other specified sepsis (principal); J96.01 Acute respiratory failure with hypoxia; J15.69 Pneumonia due to other Gram-negative bacteria; J10.08 Influenza due to other identified influenza virus with other specified pneumonia; J15.9 Unspecified bacterial pneumonia; Z20.822 Contact with and (suspected) exposure to COVID-19; I16.0 Hypertensive urgency; E66.9 Obesity, unspecified; E78.5 Hyperlipidemia, unspecified; K21.9 Gastro-esophageal reflux disease without esophagitis; Z68.30 Body mass index [BMI] 30.0-30.9, adult
CPT/HCPCS: 36415; 71045; 74176; 80048; 80053; 80061; 80076; 80202; 80307; 81001; 82306; 82607; 83036; 83690; 83735; 84100; 84443; 85025; 85048; 85610; 85730; 87040; 87045; 87070; 87081; 87086; 87177; 87205; 87426; 87427; 87804; 94640; G0378; J2470; J3490